=== PATIENT | female | born 1965 | race Caucasian/White ===

== ENCOUNTER → 2017-01-24 | Outpatient (CLI) | payer BC ==
[~2017-01-24] MED LIST: B-CO-25 PO; BIOTPOW17 PO; BUPR-267 PO; CHOL100010 PO; CYM/30 PO; FEXO1TAB49 PO; GABA-113 PO; MELO15TA4 PO; MONT1TAB3 PO; TOPI50TA16 PO; TYLOTC500 PO; ZOLP5TAB PO
--- NOTE | 2017-01-24 15:51 | MAMMOGRAPHY REPORT ---
BILATERAL DIGITAL DIAGNOSTIC MAMMOGRAM TOMOSYNTHESIS WITH CAD AND TARGETED BILATERAL ULTRASOUND: 01/24 CLINICAL HISTORY: 51-year-old woman presents with itchiness along the inferior right breast for 4-5 m onths. No skin erythema, nipple discharge or palpable mass. Family history of breast cancer = grand mother and 2 aunts. Also occasional tenderness in both breasts. TECHNIQUE: Bilateral breast tomosynthesis in addition to standard 2D mammography was performed. Curre nt study was also evaluated with a Computer Aided Detection (CAD) system. COMPARISON: Comparison is made to exams dated: 03/10/2016 mammogram, 02/21/2015 mammogram, 05/22/2013 mammogram - [facility], and 04/21/2007. BREAST COMPOSITION: There are scattered areas of fibroglandular density in both breasts. FINDINGS: There is a lobulated and circumscribed 6.5 x 4.4 mm mass in the medial right breast, only seen on the CC view. No associated architectural distortion or microcalcification. Further evaluati on with ultrasound was performed. Questionable 8 mm nodular area along the posterior nipple line on the left CC view (tomosynthesis slice 26/65), which could simply represent normal fibroglandular tiss ue. No other suspicious mass, architectural distortion or cluster of microcalcifications is seen in the left breast. Targeted ultrasound was performed along the inferior right breast in the area of itchiness pointed ou t by the patient, and also in the medial breast to assess for the 6.5 mm mammographic mass. In the r ight 4:00 axis, 1 cm from the nipple, there are 2 adjacent clusters of small cysts. The first cluste r measures 5.5 x 3.6 mm, and the second measures 3.1 x 2.9 mm. The patient reported pain while scann ing over the cysts, and the larger likely correlates with the mammographic finding. Although these f indings are probably benign, given that they do not meet the criteria for a simple cyst, a short inte rval follow-up diagnostic tomosynthesis mammogram and repeat targeted ultrasound is recommended to en sure stability in 6 months. Additional scanning throughout the inferior right breast demonstrates no other discrete solid or cystic mass. Note is made of mild benign duct ectasia. Scanning in the ret roareolar right breast demonstrates an inverted nipple but no evidence of a suspicious retroareolar m ass. Scanning in the left breast 12:00, retroareolar and 6:00 axes demonstrates minimal duct ectasia . No discrete solid or cystic mass. IMPRESSION: ACR-BI-RADS CATEGORY 3: PROBABLY BENIGN, TARGETED ULTRASOUND ACR-BI-RADS CATEGORY 3: PRO BABLY BENIGN 1. There is no new suspicious mammographic or sonographic abnormality in the in inferior right breas t to explain the itchiness described by the patient. If this symptom persists or worsens, surgical c onsultation may be useful. 2. A small, 6.5 mm lobulated mass in the medial right breast is thought to correlate with a cluster of microcysts in the 4:00 axis on ultrasound, which was also tender while performing ultrasound over this lesion. Given that it does not meet the criteria for a simple cyst, a short interval follow-up right diagnostic tomosynthesis mammogram and repeat targeted ultrasound is recommended to ensure stab ility in 6 months. 3. No mammographic or targeted sonographic evidence of malignancy in the left breast. These results and recommendations were discussed with the patient at the time of the exam. Approximately 10% of breast cancers are not detected with mammography. A negative mammographic report should not delay biopsy if a clinically suggestive mass is present. Libertad Calle M.D. ay/:01/24/2017 14:43:46 Periodontist: Luba Holden, [facility] letter sent: Follow Up Recommended 3 BI-RADS Code: ACR-BI-RADS Category 3: Probably Benign Ultrasound BI-RADS: ACR-BI-RADS Category 3: Pr obably Benign
== END | disposition home or self-care (01) ==
LOC: C.MAMM 13:20
PROVIDERS: ATTEND Family Medicine
DX: R92.8 Other abnormal and inconclusive findings on diagnostic imaging of breast (principal); N63 Unspecified lump in breast

== ENCOUNTER → 2017-05-03 | Outpatient (CLI) | payer BC ==
[~2017-05-03] MED LIST changes: +BIOTCAP2 PO; +CHOLCAP5 PO; +DULO60CA44 PO; +LEVO25TA5 PO; +MELO-84 PO; -MELO15TA4 PO; +SINCALIDE INJ 1.4 MCG in SODIUM CHLORIDE 0.9% 100ML 100 ML IV SCH; +SUMA100T16 PO; +TPM100 PO; +WLLXL/300 PO
--- NOTE | 2017-05-03 09:47 | DIAGNOSTIC IMAGING REPORT ---
ABDOMINAL ULTRASOUND, RIGHT UPPER QUADRANT HISTORY: Abdominal pain. COMPARISON: None. FINDINGS: Liver is sonographically normal. There is no biliary ductal dilatation. Common bile duct measures 4 mm in caliber. The gallbladder is normal. There are no gallstones. The pancreatic body is normal. The head and tail are partially obscured. There is no right hydronephrosis. IMPRESSION: No significant abnormality within the right upper quadrant. Electronically signed by: Marlon Perales M.D. 05/03/2017 9:46 AM Dictated Date/Time: 05/03/2017 9:45 AM
--- NOTE | 2017-05-03 11:44 | DIAGNOSTIC IMAGING REPORT ---
HEPATOBILIARY HIDA IMAGING CLINICAL HISTORY: 51 years-old Female presenting with ABD PAIN ,PT WENT TO ULTR FIRST. TECHNIQUE: Dynamic imaging of the gallbladder was initiated 65 minutes after administration of 5.5 mCi of technetium 99m Choletec. Imaging was obtained every 5 minutes over a span of 40 minutes. 1.4 mcg of sincalide was injected 5 minutes prior to the start of imaging. The gallbladder ejection fraction was calculated. COMPARISON: Ultrasound performed earlier the same day.. FINDINGS: The hepatobiliary scan shows normal filling of the gallbladder at the start of imaging. Expected activity within the bowel also noted. Gallbladder ejection fraction measured at 92% (normal greater than 50%). IMPRESSION: 1. Normal gallbladder ejection fraction. No evidence of chronic cholecystitis. Electronically signed by: Michael Gao M.D. 05/03/2017 11:43 AM Dictated Date/Time: 05/03/2017 11:42 AM
== END | disposition home or self-care (01) ==
LOC: C.ULTR 09:16
PROVIDERS: ATTEND Family Medicine
DX: R10.9 Unspecified abdominal pain (principal)

== ENCOUNTER 2017-06-29 19:08 | Emergency (ER) | payer BC ==
[~2017-06-29] VITALS: Ht 157.5 cm; Wt 53.9 kg
[~2017-06-29 19:08] MED LIST changes: -BIOTCAP2 PO; -CHOLCAP5 PO; -DULO60CA44 PO; -LEVO25TA5 PO; -SINCALIDE INJ 1.4 MCG in SODIUM CHLORIDE 0.9% 100ML 100 ML IV SCH; -SUMA100T16 PO; -TPM100 PO; -WLLXL/300 PO
[2017-06-29 19:36] VITALS: TEMP 36.9; Ht 157.5 cm; Wt 53.9 kg
--- NOTE | 2017-06-29 21:37 | EMERGENCY ROOM VISIT NOTE ---
History Report prepared by Braden: Hussein Quevedo Under the Supervision of: Dr. Amy Hill M.D. First contact with patient: 21:02 Chief Complaint: HEADACHE Stated Complaint: SEVERE HEADACHE History of Present Illness The patient is a 51 year old female who presents to the Emergency Room with complaints of a constantly worsening headache that she has been experiencing for the past four days. She describes her headache severity as "killer." The patient states that she has a history of headaches like this, which are usually located in the back of her head and along the right side. She has a history of Chiari malformation, and had a surgical procedure to repair this. The patient states that this surgery was a "flop" and left her with further complications. These complications include a "sunken incision" which is putting pressure on the back of her head and causing even further headaches. Her vision is now worsening and she has constant "popping" in her ears. She was in [place] today at 1500 for a Toradol Injection to help with the pain. The patient is not following with Neurology currently, but was told by [place] neurology that she has a "trapezius separation" that needs surgical repair. Source of History: patient Onset: 4 days Position: head Symptom Intensity: killer Timing: constant, worsening Note: Vision decline, ear popping. Review of Systems See HPI for pertinent positives & negatives. A total of 10 systems reviewed and were otherwise negative. Past Medical & Surgical Medical Problems: (1) C2 cervical fracture (2) Chiari malformation type I (3) History of Chiari malformation Surgical Problems: (1) History of hysterectomy Family History Cancer Diabetes mellitus Diabetes mellitus Heart disease Hypertension Social History Smoking Status: Never Smoker Drug Use: none Marital Status: Housing Status: lives with family Occupation Status: unemployed Current/Historical Medications Scheduled B-Complex W/ Folic Acid (Super B Complex Maxi), 1 TAB PO QAM Bupropion Hcl (Bupropion Hcl Er), 1 TAB PO QAM Cholecalciferol (Vitamin D), 5,000 UNITS PO QAM Duloxetine Hcl (Cymbalta), 30 MG PO QAM Fexofenadine Hcl (Bess Allergy), 1 TAB PO QAM Gabapentin (Neurontin), 300 MG PO TID Meloxicam (Mobic), 15 MG PO HS Montelukast Sodium (Singulair), 10 MG PO QAM Topiramate (Topamax), 50 MG PO BID Zolpidem Tartrate (Ambien), 5 MG PO HS [Biotin], 1 TAB PO QAM Scheduled PRN Acetaminophen (Tylenol), 1,000 MG PO Q6H PRN for Pain Allergies Coded Allergies: Iodinated Diagnostic Agents (Verified Allergy, Unknown, NAUSEA, 01/08/16) Physical Exam Vital Signs Date Time Temp Pulse Resp B/P (MAP) Pulse Ox O2 Delivery O2 Flow Rate FiO2 06/30/17 00:25 75 18 95/68 94 Room Air 06/29/17 22:31 76 20 101/61 96 Room Air 06/29/17 19:36 36.9 85 18 96/67 99 Room Air Physical Exam Vital signs reviewed. General: Well-appearing female, in no significant distress. HEENT: No scleral icterus, PERRLA, neck supple. Atraumatic. NECK: There are post surgical changes to the cervical spine. ROM of the C-spine is limited due to previous surgical intervention. No meningeal signs Cardiovascular: Regular rate and rhythm, no extra sounds. Pulmonary: Clear to auscultation bilaterally, normal work of breathing. Abdomen: Soft, nontender, nondistended, positive bowel sounds. Musculoskeletal: Atraumatic, no peripheral edema. Neurologic: Patient awake alert and oriented x 3, full strength in all 4 extremities. Cranial nerves 2 through 12 grossly intact. Skin: Warm, dry, no rash Medical Decision & Procedures Laboratory Results 06/29/17 22:15 Red Blood Count 3.77, Mean Corpuscular Volume 99.2, Mean Corpuscular Hemoglobin 33.7, Mean Corpuscular Hemoglobin Concent 34.0, Mean Platelet Volume 10.5, Neutrophils (%) (Auto) 44.2, Lymphocytes (%) (Auto) 43.2, Monocytes (%) (Auto) 8.2, Eosinophils (%) (Auto) 3.8, Basophils (%) (Auto) 0.3, Neutrophils # (Auto) 1.73, Lymphocytes # (Auto) 1.69, Monocytes # (Auto) 0.32, Eosinophils # (Auto) 0.15, Basophils # (Auto) 0.01 06/29/17 22:15 Test 06/29/17 22:15 White Blood Count 3.91 K/uL (4.8-10.8) Red Blood Count 3.77 M/uL (4.2-5.4) Hemoglobin 12.7 g/dL (12.0-16.0) Hematocrit 37.4 % (37-47) Mean Corpuscular Volume 99.2 fL (80-100) Mean Corpuscular Hemoglobin 33.7 pg (25-34) Mean Corpuscular Hemoglobin Concent 34.0 g/dl (32-36) Platelet Count 147 K/uL (130-400) Mean Platelet Volume 10.5 fL (7.4-10.4) Neutrophils (%) (Auto) 44.2 % Lymphocytes (%) (Auto) 43.2 % Monocytes (%) (Auto) 8.2 % Eosinophils (%) (Auto) 3.8 % Basophils (%) (Auto) 0.3 % Neutrophils # (Auto) 1.73 K/uL (1.4-6.5) Lymphocytes # (Auto) 1.69 K/uL (1.2-3.4) Monocytes # (Auto) 0.32 K/uL (0.11-0.59) Eosinophils # (Auto) 0.15 K/uL (0-0.5) Basophils # (Auto) 0.01 K/uL (0-0.2) RDW Standard Deviation 47.3 fL (36.4-46.3) RDW Coefficient of Variation 13.1 % (11.5-14.5) Immature Granulocyte % (Auto) 0.3 % Immature Granulocyte # (Auto) 0.01 K/uL (0.00-0.02) Anion Gap 5.0 mmol/L (3-11) Est Creatinine Clear Calc Drug Dose 65.7 ml/min Estimated GFR () 98.2 Estimated GFR (Non- 84.7 BUN/Creatinine Ratio 28.9 (10-20) Calcium Level 8.9 mg/dl (8.5-10.1) Total Bilirubin 0.2 mg/dl (0.2-1) Direct Bilirubin < 0.1 mg/dl (0-0.2) Aspartate Amino Transf (AST/SGOT) 10 U/L (15-37) Alanine Aminotransferase (ALT/SGPT) 21 U/L (12-78) Alkaline Phosphatase 76 U/L (45-117) Total Protein 6.9 gm/dl (6.4-8.2) Albumin 3.7 gm/dl (3.4-5.0) Laboratory results per my review. Medications Administered Medications (Trade) Dose Ordered Sig/Edson Route Start Time Stop Time Status Last Admin Dose Admin Prochlorperazine Edisylate (Compazine Inj) 10 mg NOW STAT IV 06/29/17 22:02 06/29/17 22:04 DC 06/29/17 22:26 10 MG Diphenhydramine HCl (Benadryl Inj) 25 mg NOW STAT IV 06/29/17 22:02 06/29/17 22:04 DC 06/29/17 22:27 25 MG Methylprednisolone Sodium Succinate (Solu-Medrol IV) 125 mg NOW STAT IV 06/29/17 22:02 06/29/17 22:04 DC 06/29/17 22:26 125 MG Sodium Chloride 1,000 ml @ 999 mls/hr Q1H1M STAT IV 06/29/17 22:02 06/29/17 23:02 DC 06/29/17 22:27 999 MLS/HR Hydromorphone HCl (Dilaudid Inj) 0.5 mg NOW STAT IV 06/30/17 00:04 06/30/17 00:06 DC 06/30/17 00:28 0.5 MG ED Course 2112: Past medical records reviewed. The patient was evaluated in room A12. A complete history and physical examination was performed. 2: Ordered Sodium Chloride 1000 mL @ 999 mL/hr IV, Solu-Medrol 125 mg Iv, Benadryl 25 mg IV, Compazine 10 mg IV. 0004: Ordered Dilaudid Inj 0.5 mg IV. 0045: Upon reevaluation, the patient appeared to have improvement of her symptoms. I discussed findings with her. She verbalized agreement of the treatment plan. The patient was discharged home. Medical Decision Differential diagnosis: Etiologies such as migraine headache, meningitis, sinusitis, CO exposure, ICH, SAH, infection, tumor, headache, sinus thrombosis, arterial dissection, as well as others were entertained. This pt was evaluated and appeared to be in no distress. IV access was obtained and lab work was drawn. Pt was placed on the boat carpenter. IVF were initiated. Pt states this DEL ANGEL is usual for her and denies new pattern. IV benadryl, compazine and solumedral were given. Pt was sleeping upon my reevaluation, but states her pain is no better. She was given 0.5 mg IV dilaudid. Pt's family requested a CT, however, this pt has had multiple imaging studies previously. I do not think additional radiation is in her best interest at this time as it is low yield with presentation. Pt was d/c to [facility], she should f/u with neurology and/or pain management. She will return to the ED for worsening of symptoms or any medical concerns. Medication Reconcilliation Current Medication List: was personally reviewed by me Blood Pressure Screening Patient's blood pressure: Normal blood pressure Impression Primary Impression: Headache Additional Impression: History of Chiari malformation Scribe Attestation The scribe's documentation has been prepared under my direction and personally reviewed by me in its entirety. I confirm that the note above accurately reflects all work, treatment, procedures, and medical decision making performed by me. Departure Information Dispostion Home / Self-Care Referrals Lynne Carvalho D.O. (PCP) Forms HOME CARE DOCUMENTATION FORM, IMPORTANT VISIT INFORMATION Patient Instructions My [facility] Additional Instructions Diagnosis: Headache Please drink plenty of clear fluids. Follow-up with your physician tomorrow by telephone if headache persists. Return to the emergency department for worsening of symptoms or any medical concerns. Problem Qualifiers
[2017-06-29] MEDS: METHYLPREDNISOLONE 125 MG VIAL IV STA (22:26)
[2017-06-29] MEDS: PROCHLORPERAZINE 5 MG/ML 2 ML VIAL IV STA (22:26)
[2017-06-29] MEDS: SODIUM CHLORIDE 0.9% 1000ML 1,000 ML IV STA (22:27)
[2017-06-29] MEDS: DiphenhydrAMINE HCL 50 MG/ML VIAL IV STA (22:27)
[2017-06-29 22:33] LABS: BASO % 0.3 %; BASO ABS # 0.01 K/uL (0-0.2); EOS % 3.8 %; EOS ABS # 0.15 K/uL (0-0.5); HEMATOCRIT 37.4 % (37-47); HEMOGLOBIN 12.7 g/dL (12.0-16.0); IG# 0.01 K/uL (0.00-0.02); LYMPH % 43.2 %; LYMPH ABS # 1.69 K/uL (1.2-3.4); MEAN CELL VOLUME 99.2 fL (80-100); MEAN CORPUSCULAR HEMOGLOBIN 33.7 pg (25-34); MEAN PLATELET VOLUME 10.5 fL (7.4-10.4); MONO % 8.2 %; MONO ABS # 0.32 K/uL (0.11-0.59); NEUT % 44.2 %; NEUT ABS # 1.73 K/uL (1.4-6.5); PLATELET COUNT 147 K/uL (130-400); RED CELL DISTRIBUTION WIDTH CV 13.1 % (11.5-14.5); RED CELL DISTRIBUTION WIDTH SD 47.3 fL (36.4-46.3); WHITE BLOOD COUNT 3.91 K/uL (4.8-10.8)
[2017-06-29 22:52] LABS: ALBUMIN 3.7 gm/dl (3.4-5.0); ALT/SGPT 21 U/L (12-78); BLOOD UREA NITROGEN 23 mg/dl (7-18); CALCIUM 8.9 mg/dl (8.5-10.1); CARBON DIOXIDE 24 mmol/L (21-32); CREATININE 0.81 mg/dl (0.60-1.20); GLUCOSE 85 mg/dl (70-99); POTASSIUM 3.7 mmol/L (3.5-5.1); SODIUM 141 mmol/L (136-145)
[2017-06-29 22:55] LABS: ALKALINE PHOSPHATASE 76 U/L (45-117); AST/SGOT 10 U/L (15-37); TOTAL PROTEIN 6.9 gm/dl (6.4-8.2)
[2017-06-30 00:25] VITALS: BP 95/68; PULSE 75; O2SAT 94
[2017-06-30] MEDS: HYDROmorphone INJ 0.5 MG/0.5 ML SYR IV STA (00:28)
== END 2017-06-30 00:42 | disposition home or self-care (01) ==
LOC: C.EDB 19:10 → C.EDA 06-30 00:42
DX: R51 Headache (principal); G93.5 Compression of brain; Z83.3 Family history of diabetes mellitus; Z82.49 Family history of ischemic heart disease and other diseases of the circulatory system

== ENCOUNTER → 2017-07-06 | Outpatient (CLI) | payer BC ==
--- NOTE | 2017-07-06 13:53 | DIAGNOSTIC IMAGING REPORT ---
CT HEAD WITHOUT CONTRAST (CT) CLINICAL HISTORY: HEADACHES,LT SIDED WEAKNESS COMPARISON STUDY: 07/01/2015 TECHNIQUE: Axial CT of the brain is performed from the vertex to the skull base. IV contrast was not administered for this examination. A dose lowering technique was utilized adhering to the principles of ALARA. CT DOSE: 638.56 mGycm FINDINGS: No intra or extra-axial mass lesions are visualized. There is no CT evidence of acute cortical infarction. There is no evidence of midline shift. There is no acute hemorrhage. No calvarial fractures are visualized. There are low-lying cerebellar tonsils. There are postsurgical changes of a suboccipital craniotomy. There is no evidence of pathologic ventricular dilatation. There is no evidence of acute sinusitis IMPRESSION: No acute intracranial findings Electronically signed by: Homer Gamino M.D. 07/06/2017 1:51 PM Dictated Date/Time: 07/06/2017 1:50 PM
== END | disposition home or self-care (01) ==
LOC: C.CTS 13:37
PROVIDERS: ATTEND Family Medicine
DX: R51 Headache (principal)

== ENCOUNTER → 2017-07-20 | Outpatient (CLI) | payer BC ==
--- NOTE | 2017-07-20 12:44 | DIAGNOSTIC IMAGING REPORT ---
MRI OF THE BRAIN WITHOUT CONTRAST CLINICAL HISTORY: HEADACHE [NECK. HISTORY OF CHIARI SURGERY MAY 2015 COMPARISON STUDY: 01/06/2016 FINDINGS: Sagittal T1, axial diffusion, proton density and T2 weighted axial, coronal FLAIR, and axial T1-weighted images were acquired. No intra or extra-axial mass lesions are visualized Axial diffusion-weighted images reveal no evidence of acute or subacute infarction. There is no evidence of ventricular dilatation. Proton density T2-weighted and FLAIR images reveal scattered foci of increased T2 signal within the white matter, likely on a small vessel basis. These remain essentially unchanged from the prior study There are no abnormal flow voids. There are postsurgical changes of a suboccipital craniotomy. IMPRESSION: 1. No acute intracranial findings 2. Postsurgical changes of a suboccipital craniotomy. 3. No evidence of acute or subacute infarction. No evidence of intracranial mass. No evidence of hydrocephalus. Electronically signed by: Homer Gamino M.D. 07/20/2017 12:43 PM Dictated Date/Time: 07/20/2017 12:32 PM
== END | disposition home or self-care (01) ==
LOC: C.MRIBC 11:37
PROVIDERS: ATTEND Family Medicine
DX: R51 Headache (principal)

== ENCOUNTER → 2017-07-25 | Outpatient (CLI) | payer BC ==
--- NOTE | 2017-07-25 12:44 | MAMMOGRAPHY REPORT ---
UNILATERAL RIGHT DIGITAL DIAGNOSTIC MAMMOGRAM TOMOSYNTHESIS WITH CAD AND TARGETED RIGHT ULTRASOUND: CLINICAL HISTORY: 51-year-old woman presents for follow-up in the right breast for a 6.5 mm lobulated mass in the medial right breast mammographically, thought to correlate with a cluster of microcysts in the 4:00 axis on ultrasound. TECHNIQUE: Right breast tomosynthesis in addition to standard 2D mammography was performed. Current study was also evaluated with a Computer Aided Detection (CAD) system. COMPARISON: Comparison is made to exams dated: 01/24/2017 mammogram, 01/24/2017 ultrasound, 03/10/2016 mammogram, 02/21/2015 mammogram, 05/22/2013 mammogram - [facility], and 04/21/2007. BREAST COMPOSITION: There are scattered areas of fibroglandular density in the right breast. FINDINGS: The previously observed oval to lobulated, 6.5 x 4.4 mm mass in the medial, middle one thir d of the right breast on the CC view is less prominent on today's exam and possibly identified on serafin osynthesis slice 17/61, measuring 3.9 x 3.2 mm. The interval decrease in size of this mammographic m ass confirms benignity. No new suspicious irregular or spiculated mass identified. No developing as ymmetry, area of architectural distortion or suspicious calcifications. Targeted ultrasound was performed in the 4:00 left breast. The probable cluster of microcysts identi fied on the prior ultrasound are no longer seen, confirming benignity. IMPRESSION: ACR BI-RADS CATEGORY 2: BENIGN, TARGETED ULTRASOUND ACR BI-RADS CATEGORY 2: BENIGN Decreased mammographic prominence of a benign-appearing lobulated and circumscribed mass in the media l right breast, and resolution of previously observed probable microcystic clusters in the 4:00 right breast on ultrasound. The decrease/resolution of these findings confirms benignity, and no further close follow-up is needed at this time. Recommend return to annual screening mammography schedule, mague ubrady in December 2017. These results and recommendations were discussed with the patient at the time of the exam. She tenta tively scheduled her next screening exam prior to leaving the department. Approximately 10% of breast cancers are not detected with mammography. A negative mammographic report should not delay biopsy if a clinically suggestive mass is present. Libertad Calle M.D. ay/:07/25/2017 12:26:02 Sprinkling Truck Driver: Luba DÍAZ)(M), [facility] letter sent: Normal 1/2 BI-RADS Code: ACR BI-RADS Category 2: Benign Ultrasound BI-RADS: ACR BI-RADS Category 2: Benign
== END | disposition home or self-care (01) ==
LOC: C.MAMM 09:33
PROVIDERS: ATTEND Family Medicine
DX: Z09 Encounter for follow-up examination after completed treatment for conditions other than malignant neoplasm (principal); N63.10 Unspecified lump in the right breast, unspecified quadrant

== ENCOUNTER → 2017-08-16 | Outpatient (CLI) | payer BC ==
[~2017-08-16] MED LIST changes: +BIOTCAP2 PO; +CHOLCAP5 PO; +DULO60CA44 PO; +LEVO25TA5 PO; +SUMA100T16 PO; +TPM100 PO; +WLLXL/300 PO
--- NOTE | 2017-08-16 11:22 | DIAGNOSTIC IMAGING REPORT ---
LEFT FIRST TOE ULTRASOUND CLINICAL HISTORY: LOCALIZED SWELLING,MASS AND LUMP,UNSPECIFIED LOWER LIMB COMPARISON STUDY: None. FINDINGS: Real-time sonographic imaging of the left first toe was performed with assistance representative images submitted. There is a slightly complex cystic lesion within the soft tissues of the left toe. This contains a few septations and internal echoes. This measures approximately 10 x 7 x 4 mm. IMPRESSION: There is an indeterminate slightly complex 10 x 7 x 4 mm cystic lesion within the soft tissues of the left first toe. Electronically signed by: Earle Knight M.D. 08/16/2017 11:20 AM Dictated Date/Time: 08/16/2017 11:19 AM
== END | disposition home or self-care (01) ==
LOC: C.ULTR 10:40
PROVIDERS: ATTEND Family Medicine
DX: R22.40 Localized swelling, mass and lump, unspecified lower limb (principal)

== ENCOUNTER → 2017-09-02 | Day surgery (SDC) | payer BC ==
[2017-08-23 12:25] VITALS: Ht 157.5 cm; Wt 70.5 kg
[~2017-09-02] VITALS: Ht 157.5 cm; Wt 70.5 kg
[~2017-09-02] MED LIST changes: +ACETAMINOPHEN/CODEINE 300/30MG TAB PO PRN; +ATROPINE SULFATE 0.1 MG/ML 5ML SYR IV PRN; -BIOTPOW17 PO; +BUPIVACAINE 0.5 % 5 MG/1 ML PF 10ML VIAL ONE; -BUPR-267 PO; +CEFAZOLIN 1000MG IV PUSH 7.5 ML IV SCH; -CHOL100010 PO; -CYM/30 PO; +EpHEDrine SULFATE INJ 50 MG/ML AMP IV PRN; +FENTANYL CITRATE INJ 50 MCG/1 ML 2 ML VIAL IV PRN; +FENTANYL CITRATE INJ 50 MCG/1 ML 2 ML VIAL ONE; +FLUMAZENIL 0.1 MG/1 ML 10 ML VIAL IV PRN; -GABA-113 PO; +HYDROCODONE/ACETAMIN 5/325MG TAB PO PRN; +HYDROmorphone INJ 2 MG/ML SYR/VIAL IV PRN; +LABETALOL HCL IV 5 MG/ML 20ML IV PRN; +LACTATED RINGER'S 1000ML 1,000 ML IV SCH; +LIDOCAINE HCL 1% 20 ML VIAL ONE; +LIDOCAINE HCL 2% 2 ML VIAL (20MG/ML) ONE; +MEPERIDINE HCL 25 MG/ML CARP IV PRN; +MIDAZOLAM HCL 1 MG/ML 2ML VIAL ONE; +NALOXONE HCL 0.4 MG/1 ML VIAL/CARP IV PRN; +ONDANSETRON INJ 2 MG/ML 2 ML VIAL IV PRN; +PHENYLEPHRINE 100MCG/ML 5ML SYR IV PRN; +PROPOFOL IV EMULSION 10 MG/ML 20 ML VIAL ONE; +SODIUM CHLORIDE 0.9% 1000ML 1,000 ML IV SCH; -TOPI50TA16 PO
--- NOTE | 2017-09-02 07:23 | History & Physical Bridge - SC ---
H&P Re-Evaluation Bridge Note: I have examined the patient, reviewed the History & Physical and in the interval since the performance of the History & Physical I have noted the following changes of clinical significance: No changes noted
[2017-09-02 08:25] VITALS: TEMP 36.1
--- NOTE | 2017-09-02 08:27 | Discharge Instructions-SurgCtr ---
Discharge Instructions Date of Service September 02, 2017. Visit Reason for Visit: Left Foot Painful Mass Discharge Discharge Diagnosis / Problem: left foot mass Discharge Goals Goal(s): Decrease discomfort, Improve function, Diagnostic testing Medications Stopped Medications Name(s): restart all medications Activity Recommendations Activity Limitations: as noted below (please limit weightbearing) Lifting Limitations: no more than 5 pounds Exercise/Sports Limitations: none May Resume Sexual Activity: after two weeks Shower/Bathe: keep incision dry Driving or Machine Use: after follow up Weightbearing Status: Left weightbearing (as tolerated) Anesthesia . Post Anesthesia Instructions: If you have had General Anesthesia or IV Sedation: * Do not drive today. * Resume driving when surgeon permits. * Do not make important decisions or sign legal documents today. * Call surgeon for: 1. Temperature elevations greater than 101 degrees F. 2. Uncontrollable pain. 3. Excessive bleeding. 4. Persistent nausea and vomiting. 5. Medication intolerance (nausea, vomiting or rash). * For nausea and vomiting use only clear liquids such as: tea, soda, bouillon until nausea subsides, then gradually increase diet as tolerated. * If you have any concerns or questions, call your surgeon's office. If physician is unavailable and it is an emergency, call 911 or go to the nearest emergency room. . Diet Recommendations Home Diet: no limitations Procedures Procedures Performed: Left Foot Mass Excision And Biopsy Pending Studies Studies pending at discharge: no Medical Emergencies . Who to Call and When: Medical Emergencies: If at any time you feel your situation is an emergency, please call 911 immediately. . Non-Emergent Contact Non-Emergency issues call your: Primary Care Provider (please call Dr. Cirilo Mullen at [phone]) Call Non-Emergent contact if: temperature is above 101.5 . . "Provider Documentation" section prepared by Zabrina Serna. . [place] Drug Monitoring Program Search Results: patient reviewed within database Drug Monitoring Findings: ok for prescription narcotics, PDMP site checked, patient could not tolerate so Toradol sent
--- NOTE | 2017-09-02 08:29 | [facility] Post Operative Brief Note ---
Immediate Operative Summary Operative Date September 02, 2017. Pre-Operative Diagnosis Left Foot Mass Post-Operative Diagnosis Same Procedure(s) Performed Left Foot Mass Excision And Biopsy Surgeon Dr. Rivera Aerospace Engineer Surgeon(s) None Estimated Blood Loss 0 mL Findings Consistent with Post-Op Diagnosis ganglion cyst left foot Fluids (cc crystalloids) none Specimens A. Left Foot Mass Drains None Anesthesia Type MAC Complication(s) none Disposition Accompanied Pt To Recovery: yes Disposition: Recovery Room / PACU
--- NOTE | 2017-09-02 08:45 | Anesthesiology Progress Note ---
Anesthesia Post Op Note Date & Time September 02, 2017 at 08:45 Vital Signs Pain Intensity: 0 Vital Signs Past 12 Hours Date Time Temp Pulse Resp B/P (MAP) Pulse Ox O2 Delivery O2 Flow Rate FiO2 09/02/17 08:25 36.1 68 16 101/64 (76) 95 Room Air 09/02/17 06:56 37.0 88 16 100/63 (75) 98 Room Air Notes Mental Status: alert / awake / arousable, participated in evaluation Pt Amnestic to Procedure: Yes Nausea / Vomiting: adequately controlled Pain: adequately controlled Airway Patency, RR, SpO2: stable & adequate BP & HR: stable & adequate Hydration State: stable & adequate Anesthetic Complications: no major complications apparent
[2017-09-02 08:47] VITALS: BP 105/65; PULSE 72; O2SAT 99
--- NOTE | 2017-09-02 13:38 | OPERATIVE REPORT ---
DATE OF OPERATION: 09/02/2017 PREOPERATIVE DIAGNOSIS: Left foot painful mass. POSTOPERATIVE DIAGNOSIS: Same. PROCEDURE: Left foot mass excision and biopsy. HEMOSTASIS: Pneumatic ankle tourniquet at 250 mmHg. BLOOD LOSS: Zero. ANESTHESIA: Local IV sedation. PROCEDURE FOLLOWS: The patient was brought in the operating room and placed in the supine position. The left lower extremity was prepped and draped in the usual sterile manner. A 1:1 mix of 1% lidocaine plain and 0.5% Marcaine was utilized to anesthetize the left foot in the area of the mass or ganglion cyst that was present. At this time, anesthesia was induced, a timeout was taken, and the procedure began after inflation of the tourniquet. A curvilinear incision was made over the first interspace of the left foot which is the site of the left foot mass that was present. Dissection was carried through the skin and subcutaneous tissues. At this point, what is likely a ganglion cyst was identified directly under the subcutaneous tissues. The ganglion cyst was dissected free of all the soft tissue attachments. It was sent to pathology for permanent specimen. The remaining tissues were clean. Intraoperative photos were obtained. There were no abnormalities to the interspace. No abnormalities to the surrounding tissue. No abnormalities to any adjacent structures including the first metatarsophalangeal joint. The cyst was well contained within the area just under the subcutaneous tissues of the first interspace. The area was then flushed with copious amounts of normal saline. The subcutaneous tissues were then closed with 2-0 Vicryl, the skin was then closed with 3-0 Prolene. Compressive and corrective dressings were applied. The tourniquet was deflated. The patient had good hemodynamic response noted to the left lower extremity and to the hallux in all digits of the left foot. The patient was taken to the recovery room with all vital signs stable and intact. She will follow up with me in my office in 1 week. She was made aware of all risks and benefits of the procedure and signed consent. [facility] site was checked prior to the patient having her pain medication sent; however, she was not able to tolerate the narcotics with her other medications and therefore opted to have Toradol for postop pain management. Again, she signed consent and will follow up with me in 1 week. I attest to the content of the Intraoperative Record and any orders documented therein. Any exceptions are noted below. BORIS
== END | disposition home or self-care (01) ==
LOC: X.SURG 06:40
PROVIDERS: ATTEND Podiatrist
DX: M67.472 Ganglion, left ankle and foot (principal); M19.90 Unspecified osteoarthritis, unspecified site; Z98.890 Other specified postprocedural states; Z88.8 Allergy status to other drugs, medicaments and biological substances; F17.200 Nicotine dependence, unspecified, uncomplicated; Z82.49 Family history of ischemic heart disease and other diseases of the circulatory system; Z83.3 Family history of diabetes mellitus; Z80.9 Family history of malignant neoplasm, unspecified

== ENCOUNTER 2020-08-05 09:25 | Inpatient (IN) ==
--- NOTE | 2020-07-21 15:22 | PAT Medication Instructions ---
Medication Instructions Date of Service July 21, 2020 Home Medications celecoxib 200 mg PO BID duloxetine 60 mg PO HS pantoprazole 1 tab PO QPM cetirizine 10 mg PO HS cholecalciferol (vitamin D3) [Vitamin D3] 5,000 unit PO QAM cyanocobalamin (vitamin B-12) 1,000 mcg PO QAM duloxetine 90 mg PO QAM acetazolamide [Diamox] 500 mg PO BID bupropion HCl 150 mg PO QAM levothyroxine 75 mcg PO QAM linaclotide [Linzess] 72 mcg PO QAM sumatriptan succinate 6 mg SUBCUT UD PRN zolpidem 10 mg PO HS PRN ASK your surgeon for instructions celecoxib 200 mg PO BID ASK your prescriber and surgeon acetazolamide [Diamox] 500 mg PO BID DO NOT take the morning of surgery cholecalciferol (vitamin D3) [Vitamin D3] 5,000 unit PO QAM cyanocobalamin (vitamin B-12) 1,000 mcg PO QAM linaclotide [Linzess] 72 mcg PO QAM Take morning of surgery With a small sip of water, OTHERWISE NOTHING TO EAT OR DRINK AFTER MIDNIGHT: duloxetine 90 mg PO QAM bupropion HCl 150 mg PO QAM levothyroxine 75 mcg PO QAM sumatriptan succinate 6 mg SUBCUT UD PRN (if needed) Take evening before surgery duloxetine 60 mg PO HS pantoprazole 1 tab PO QPM cetirizine 10 mg PO HS sumatriptan succinate 6 mg SUBCUT UD PRN (if needed) zolpidem 10 mg PO HS PRN (if needed) Other Notes If you have any questions please call us at [phone] or [phone] or [phone] or [phone]
--- NOTE | 2020-07-22 12:28 | Anesthesiology Consultation ---
Date of Service July 22, 2020 Assessment & Plan (1) Encounter for pre-operative examination: COVID Status: As of 07/22 assessment, patient denies travel to endemic area, known exposure/sick contacts, or symptoms of COVID19. Patient instructed that they and their household members must follow strict social distancing guidelines, wear a mask in public and avoid travel/events/gatherings for 14 days prior to surgery. Preoperative COVID19 testing to be completed prior to surgery per surgeon's arrangements (08/29). Patient made aware to self-isolate as much as possible between COVID testing and surgery. Patient is fully vaccinated. Spoke to Dr. Romano re: patient's Diamox. Recommend it be continued perioperatively. Patient was informed of this. Patient is S/P Chiari malformation decompression -- follows with neurosurgery and the headache clinic with [facility]. Will obtain most recent office notes. Chart Review Chart Review: Acceptable Risk for Surgery and Patient seen in Pre Admission Testing Teaching & Discussion Instructed NPO after midnight before surgery, except medications with 15 cc of water. Medication instructions provided according to the PAT guidelines. History Surgery Operation Date: 08/05/20 11:05 Proposed Procedures p L4-L5 Decompression Fusion, L5-S1 Hardware Removal Spinal Cord Monitoring - Kurt Matias, Height/Weight Height: 5 ft 2 in Weight: 80.9 kg Allergies Allergy/AdvReac Type Severity Reaction Status Date / Time Iodinated Contrast Media AdvReac Mild NAUSEA Verified 07/09/20 12:37 Medications Home Medications Medication Instructions Recorded Confirmed Last Taken celecoxib 200 mg PO BID 07/12/18 07/09/20 02/11/20 21:00 duloxetine 60 mg PO HS 07/12/18 07/09/20 02/11/20 21:00 pantoprazole 1 tab PO QPM 07/12/18 07/09/20 01/29/20 08:00 cetirizine 10 mg PO HS 07/19/18 07/09/20 02/11/20 08:00 cholecalciferol (vitamin D3) 5,000 unit PO QAM 07/19/18 07/09/20 02/11/20 08:00 [Vitamin D3] cyanocobalamin (vitamin B-12) 1,000 mcg PO QAM 07/19/18 07/09/20 02/11/20 08:00 duloxetine 90 mg PO QAM 12/28/19 07/09/20 02/11/20 08:00 acetazolamide [Diamox] 500 mg PO BID 07/09/20 07/09/20 Unknown bupropion HCl 150 mg PO QAM 07/09/20 07/09/20 Unknown levothyroxine 75 mcg PO QAM 07/09/20 07/09/20 Unknown linaclotide [Linzess] 72 mcg PO QAM 07/09/20 07/09/20 Unknown sumatriptan succinate 6 mg SUBCUT UD PRN 07/09/20 07/09/20 Unknown zolpidem 10 mg PO HS PRN 07/09/20 07/09/20 Unknown Past Medical History Medical History Cervical spine fracture HX OF 2001 ([facility]) Degenerative disc disease Depression Fibromyalgia GERD (gastroesophageal reflux disease) History of Chiari malformation s/p surgical intervention. Follows with Dr. Ballard [facility]. History of gastric ulcer Hypothyroidism Irritable bowel disease Migraine Osteoarthritis Ovarian cyst HX OF Sensorineural hearing loss (SNHL) of both ears Spinal stenosis Exercise / Class Metabolic Activity II 4-5 Yardwork/Stairs/Walk up hill (Denies Cp or SOB with 1 FOS with 1 FOS, currently limited by pain.) Past Family History Family History Mother Family history of diabetes mellitus Hypertension Heart disease Asthma Father Hypertension Heart disease Grandmother Cancer Aunt Cancer Son Allergies Asthma Denies family history of Hearing loss No family history of adverse response to anesthesia No family history of bleeding disorder Stroke Past Surgical History Surgical History Fusion of spine CERVICAL 5-6-7 LUMBAR H/O craniotomy 2015/[facility] (TO CORRECT CHIARI MALFORMATION) and then repeat in 2019/[facility] H/O hand surgery x2 (LEFT) History of bilateral tubal ligation History of colonoscopy History of endoscopic sinus surgery History of esophagogastroduodenoscopy (EGD) History of hysterectomy History of tooth extraction S/P foot surgery, left HX OF x2 Past Anesthesia History No Hx of Anesthesia Complications and No Family Hx of Anesthesia Complications History of PONV No Hx of PONV and No Hx of Motion Sickness Social History Smoking Status: Current every day smoker tobacco type: cigarettes Smoking cigarettes per day: 5-10 CIG DAILY Do You Dip or Chew Tobacco: No Hx Alcohol Use: No Hx Substance Use: No substance use type: does not use Review of Systems Pt denies any recent chest pain, shortness of breath, palpitations, cough, fever, URI, or uncontrolled acid reflux (mostly controlled with PPI and only needs Gavascon with certain foods). Physical Exam Vital Signs BP: 93/64 (pt reports this is baseline, she is asymptomatic) P: 82bpm SPO2: 98% RA T: 98.0 F R: 16 ENMT Mouth: + dental restorations (one molar implant); no chipped teeth and no loose teeth Thyromental Distance: > or= 3.5 Finger Breadths (3.5) Mallampati Class: II Neck + limited neck extension (very slightly) Midline anterior scar. Respiratory normal respiratory effort, lungs clear to auscultation Cardiovascular RRR, no murmur, no edema Vessels: no carotid bruit Testing Laboratory Results 07/22/20 12:33 07/22/20 12:33 PT 9.9 Seconds (9.0-12.0) 07/22/20 12:33 INR 1.0 (0.9-1.1) 07/22/20 12:33 APTT 27.1 Seconds (21.0-31.0) 07/22/20 12:33 Urine Color Yellow 07/22/20 12:33 Urine Appearance Clear (Clear) 07/22/20 12:33 Urine pH 6.0 (4.5-7.5) 07/22/20 12:33 Ur Specific [place] 1.012 (1.000-1.030) 07/22/20 12:33 Urine Protein Negative (Negative) 07/22/20 12:33 Urine Glucose (UA) Negative (Negative) 07/22/20 12:33 Urine Ketones Negative (Negative) 07/22/20 12:33 Urine Nitrite Negative (Negative) 07/22/20 12:33 Ur Leukocyte Esterase Negative (Negative) 07/22/20 12:33 Blood Type O Positive 07/22/20 12:33 Antibody Screen NEGATIVE 07/22/20 12:33 Electrocardiogram Date: 07/22/20 Findings: + NSR @ (78bpm) and + no change from Chest X-Ray Date: 07/22/20 Findings: + NAD Cervical Spine Date: 12/06/18 IMPRESSION: 1. Status post C5-C7 ACDF. The hardware appears intact. 2. Mild facet degenerative changes, unchanged. 3. Straightening of the cervical spine is also unchanged.
--- NOTE | 2020-07-22 13:17 | XRay Report ---
XR chest Pre-admission PA/Lat HISTORY: 54 years-old Female pat preoperative exam. No acute chest complaints COMPARISON: Chest radiographs 12/29/2018 TECHNIQUE: PA and lateral views of the chest FINDINGS: Cardiomediastinal and hilar silhouettes are within normal limits. There is no pneumothorax, pleural e ffusion, airspace consolidation or overt pulmonary edema. The bones of the chest appear grossly intac t. Lower cervical spinal fusion hardware. IMPRESSION: No acute process. ACT 112: Negative or not required by law. The above report was generated using voice recognition software. It may contain grammatical, syntax o r spelling errors. Electronically signed by: Willy Tobar M.D. 07/22/2020 1:16 PM
[2020-07-22 14:19] LABS: Basophils # (auto) 0.01 K/uL (0-0.2); Basophils % (auto) 0.3 %; Eosinophils # (auto) 0.11 K/uL (0-0.5); Hematocrit (blood only) 40.5 % (37-47); Hemoglobin 13.4 g/dL (12.0-16.0); Immature Granulocytes # (auto) 0.01 K/uL (0.00-0.02); Immature Granulocytes % (auto) 0.3 %; Lymphocytes # (auto) 1.06 K/uL (1.2-3.4); Mean Corpuscular Hemoglobin 32.7 pg (25-34); Mean Corpuscular Hgb Conc 33.1 g/dL (32-36); Mean Corpuscular Volume 98.8 fL (80-100); Mean Platelet Volume 11.3 fL (7.4-10.4); Monocytes % (auto) 8.2 %; Neutrophils # (auto) 2.17 K/uL (1.4-6.5); Neutrophils % (auto) 59.2 %; Platelet Count 140 K/uL (130-400); RDW Coefficient of Variation 13.2 % (11.5-14.5); RDW Standard Deviation 47.4 fL (36.4-46.3); White Blood Count 3.66 K/uL (4.8-10.8)
[2020-07-22 14:25] LABS: BUN Creatinine Ratio 16.7 (10-20); Calcium 9.3 mg/dl (8.5-10.1); Est GFR (African American) 85.8; Potassium 4.4 mmol/L (3.5-5.1)
[2020-07-22 14:34] LABS: Partial Thromboplastin Time 27.1 Seconds (21.0-31.0); Prothrombin Time 9.9 Seconds (9.0-12.0)
--- NOTE | 2020-07-22 14:40 | Electrocardiogram Report ---
Test Reason : Blood Pressure : / mmHG Vent. Rate : 078 BPM Atrial Rate : 078 BPM P-R Int : 144 ms QRS Dur : 074 ms QT Int : 356 ms P-R-T Axes : 060 048 041 degrees QTc Int : 405 ms Normal sinus rhythm Normal ECG When compared with ECG of 12-JUL-2018 08:07, No significant change was found Confirmed by Leonidas Magaña ([id number]) on 07/22/2020 2:40:18 PM Referred By: Kurt Matias Confirmed By:Gee Magaña
[2020-07-22 15:01] LABS: Appearance Urine Clear (Clear); Bilirubin Urine Negative (Negative); Blood Urine Negative (Negative); Color Urine Yellow; Glucose Urine UA Negative (Negative); Ketones Urine Negative (Negative); Leukocyte Esterase Urine Negative (Negative); Nitrite Urine Negative (Negative); Protein Urine Negative (Negative); Specific Gravity Urine 1.012 (1.000-1.030); Urobilinogen Urine Negative (Negative)
[~2020-08-05 09:25] MED LIST changes: +ACETAMINOPHEN 500 MG TAB PO SCH; -ACETAMINOPHEN/CODEINE 300/30MG TAB PO PRN; -ATROPINE SULFATE 0.1 MG/ML 5ML SYR IV PRN; -B-CO-25 PO; -BIOTCAP2 PO; -BUPIVACAINE 0.5 % 5 MG/1 ML PF 10ML VIAL ONE; -CEFAZOLIN 1000MG IV PUSH 7.5 ML IV SCH; -CHOLCAP5 PO; +CeleBREX 200 MG CAP PO SCH; -DULO60CA44 PO; -EpHEDrine SULFATE INJ 50 MG/ML AMP IV PRN; -FENTANYL CITRATE INJ 50 MCG/1 ML 2 ML VIAL IV PRN; -FENTANYL CITRATE INJ 50 MCG/1 ML 2 ML VIAL ONE; -FEXO1TAB49 PO; -FLUMAZENIL 0.1 MG/1 ML 10 ML VIAL IV PRN; +GABAPENTIN 900 MG DOSE PO SCH; -HYDROCODONE/ACETAMIN 5/325MG TAB PO PRN; -HYDROmorphone INJ 2 MG/ML SYR/VIAL IV PRN; -LABETALOL HCL IV 5 MG/ML 20ML IV PRN; -LACTATED RINGER'S 1000ML 1,000 ML IV SCH; -LEVO25TA5 PO; -LIDOCAINE HCL 1% 20 ML VIAL ONE; -LIDOCAINE HCL 2% 2 ML VIAL (20MG/ML) ONE; +LR 15ML/HR IV SCH; -MELO-84 PO; -MEPERIDINE HCL 25 MG/ML CARP IV PRN; -MIDAZOLAM HCL 1 MG/ML 2ML VIAL ONE; -MONT1TAB3 PO; -NALOXONE HCL 0.4 MG/1 ML VIAL/CARP IV PRN; -ONDANSETRON INJ 2 MG/ML 2 ML VIAL IV PRN; -PHENYLEPHRINE 100MCG/ML 5ML SYR IV PRN; -PROPOFOL IV EMULSION 10 MG/ML 20 ML VIAL ONE; -SODIUM CHLORIDE 0.9% 1000ML 1,000 ML IV SCH; -SUMA100T16 PO; -TPM100 PO; -TYLOTC500 PO; -WLLXL/300 PO; -ZOLP5TAB PO; +ceFAZolin 2000MG 2,000 MG/15 ML SYR IV SCH
[2020-08-05] MEDS ORDERED: DEXAMETHASONE SOD INJ 4 MG/ML VIAL ONE (09:42)
[2020-08-05] MEDS ORDERED: ONDANSETRON INJ 2 MG/ML 2 ML VIAL ONE (09:42)
[2020-08-05] MEDS ORDERED: MIDAZOLAM HCL 1 MG/ML 2ML VIAL ONE (09:42)
[2020-08-05] MEDS ORDERED: ROCURONIUM BROMIDE 10 MG/ML 5 ML VIAL IV ONE (09:42)
[2020-08-05] MEDS ORDERED: HYDROmorphone INJ 2 MG/ML SYR/VIAL ONE (09:42)
[2020-08-05] MEDS ORDERED: PROPOFOL IV EMULSION 10 MG/ML 20 ML VIAL IV ONE (09:42)
[2020-08-05] MEDS ORDERED: ePHEDrine sulfate 50 MG/ML AMP IV PRN (10:22)
[2020-08-05] MEDS ORDERED: ATROPINE SULFATE 0.1 MG/ML 10ML SYR IV PRN (10:22)
[2020-08-05] MEDS ORDERED: PROMETHAZINE HCL 6.25 MG in SODIUM CHLORIDE 0.9% 50 ML IV PRN (10:22)
[2020-08-05] MEDS ORDERED: ONDANSETRON INJ 2 MG/ML 2 ML VIAL IV PRN ×2 (10:22→14:39)
[2020-08-05] MEDS ORDERED: HYDROmorphone INJ 2 MG/ML SYR/VIAL IV PRN (10:22)
--- NOTE | 2020-08-05 10:35 | History & Physical Bridge Note ---
Date of Service August 05, 2020 History & Physical Bridge Note I have examined the patient, reviewed the History & Physical and in the interval since the performance of the History & Physical I have noted the following changes of clinical significance: no changes noted
--- NOTE | 2020-08-05 10:36 | History & Physical Report ---
Date of Service August 05, 2020 Assessment & Plan (1) Neurogenic claudication due to lumbar spinal stenosis: Admission and Anticipated Discharge Date Admission Date: L4-5 decompression fusion, L5-S1 hardware removal History of Present Illness Chief Complaint: Back and bilateral leg pain Primary Care Provider: Lynne Carvalho DO This is a 54-year-old female known to me the presents with chronic persistent back and bilateral leg pain. After failing course of nonoperative care is here for surgical invention. Allergies Allergy/AdvReac Type Severity Reaction Status Date / Time Iodinated Contrast Media AdvReac Mild NAUSEA Verified 08/05/20 10:08 Home Medications Medication Instructions Recorded Confirmed Type celecoxib 200 mg PO BID 07/12/18 08/05/20 History duloxetine 60 mg PO HS 07/12/18 08/05/20 History pantoprazole 1 tab PO QPM 07/12/18 08/05/20 History cetirizine 10 mg PO HS 07/19/18 08/05/20 History cholecalciferol (vitamin D3) 5,000 unit PO QAM 07/19/18 08/05/20 History [Vitamin D3] cyanocobalamin (vitamin B-12) 1,000 mcg PO QAM 07/19/18 08/05/20 History duloxetine 90 mg PO QAM 12/28/19 08/05/20 History acetazolamide [Diamox] 500 mg PO BID 07/09/20 08/05/20 History bupropion HCl 150 mg PO QAM 07/09/20 08/05/20 History levothyroxine 75 mcg PO QAM 07/09/20 08/05/20 History linaclotide [Linzess] 72 mcg PO QAM 07/09/20 08/05/20 History sumatriptan succinate 6 mg SUBCUT UD PRN 07/09/20 08/05/20 History zolpidem 10 mg PO HS PRN 07/09/20 08/05/20 History Past Med/Surg History Medical History Cervical spine fracture HX OF 2001 ([facility]) Degenerative disc disease Depression Fibromyalgia GERD (gastroesophageal reflux disease) History of Chiari malformation s/p surgical intervention. Follows with Dr. Ballard [facility]. History of gastric ulcer Hypothyroidism Irritable bowel disease Migraine Osteoarthritis Ovarian cyst HX OF Sensorineural hearing loss (SNHL) of both ears Spinal stenosis Surgical History Fusion of spine CERVICAL 5-6-7 LUMBAR H/O craniotomy 2015/[facility] (TO CORRECT CHIARI MALFORMATION) and then repeat in 2019/[facility] H/O hand surgery x2 (LEFT) History of bilateral tubal ligation History of colonoscopy History of endoscopic sinus surgery History of esophagogastroduodenoscopy (EGD) History of hysterectomy History of tooth extraction S/P foot surgery, left HX OF x2 Family History Mother Family history of diabetes mellitus Hypertension Heart disease Asthma Father Hypertension Heart disease Grandmother Cancer Aunt Cancer Son Allergies Asthma Denies family history of Hearing loss No family history of adverse response to anesthesia No family history of bleeding disorder Stroke Social History (Updated 02/20/20 @ 15:01 by Ramya Mireles RN) Smoking Status: Current every day smoker Cigarettes Per Day: 5-10 CIG DAILY; Second Hand Exposure: No; Do You Dip or Chew Tobacco: No; Tobacco Cessation Education Requested by Patient: No Hx Alcohol Use: No Hx Substance Use: No Preferred Language: Czech Communication Ability: Effective Visual Impairment: No Limitations 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
[2020-08-05] MEDS ORDERED: BACITRACIN INJ 50,000 UNIT VIAL ONE (10:52)
[2020-08-05] MEDS ORDERED: BUPIVACAINE/EPINEPHRINE 0.5% MPF 1:200,000 30 ML VIAL ONE (10:52)
[2020-08-05] MEDS ORDERED: ePHEDrine sulfate 50 MG/ML SYR ONE (12:06)
[2020-08-05] MEDS ORDERED: PHENYLEPHRINE 100MCG/ML 5ML SYR ONE (12:06)
[2020-08-05] MEDS ORDERED: FLOSEAL HEMOSTATIC MATRIX 10ML TOP ONE (12:38)
[2020-08-05] MEDS ORDERED: NEOSTIGMINE METHYLSULFATE 1 MG/ML 10ML VIAL ONE (12:50)
[2020-08-05] MEDS ORDERED: GLYCOPYRROLATE 0.2 MG/ML VIAL ONE (12:50)
--- NOTE | 2020-08-05 12:55 | Operative Report ---
Post Operative Report Pre & Post Diagnosis Operation Date: 08/05/20 11:05 Pre-Op Diagnosis: Spinal Stenosis, Lumbar Region with Neurogenic Claudication Post-Op Diagnosis: Spinal Stenosis, Lumbar Region with Neurogenic Claudication I identified the patient and participated in the time-out.: Yes Procedure Operation Date: 08/05/20 11:05 Actual Procedures #1 Removal of posterior instrumentation L5-S1. #2 exploration of fusion L5-S1. #3 lumbar decompression with bilateral medial facetectomies foraminotomies L3-4 and L4-5. #4 posterior spinal fusion L4-5. #5 placement posterior instrumentation L4-5. #6 interbody fusion L4-5. #7 placement of peek cage 12 x 22 mm at L4-L5. #8 placement locally harvested morselized autograft in the posterior lateral gutters. #9 placement of I factor interbody space and posterior lateral gutters. Surgeon Kurt Matias, DO Stockroom Helper Janki Millan Estimated Blood Loss 100 Findings See Below The patient is 5 foot 2 weighs over 80 kg with a BMI in excess of 32. Patient's body habitus did contribute to significant technical difficulty adding at least 25% increase to the operative time. Specimens None Indications This is a 54-year-old female who presents with above-mentioned diagnosis after failing since course of nonoperative care she is here for surgical invention. Description of Procedure Patient was met with identified informed consent obtained. Patient was then taken to the operative suite underwent a patient placed in a prone position the [place] table top Rk frame. All bony prominences well-padded eyes inspected to ensure no external pressure placed upon the. This point lumbar spine was prepped and draped in sterile fashion. Sharp dissection with assistance of Bovie cautery was performed down to and exposing the lamina and transverse processes of L4 and the instrumentation at L5 and S1 levels bilaterally. I then proceeded to move the hardware at L5 is 1 explore the fusion mass noting to be intact. And then performed a complete laminectomy of L4 partial laminectomy of L3 including bilateral medial facetectomies and foraminotomies addressing severe spinal stenosis. Pedicle screws were then placed in L4 and L5 bilaterally with assistance of fluoroscopy the purposes tammie placed. By way of a transfemoral approach on the right a complete discectomy of L4-L5 was performed endplates curetted to subcortical bleeding bone and a 12 x 22 mm peek cage filled with I factor tapped in position. The rods were then locked into final position bilaterally. The transverse processes of L4 and L5 burred to subcortical bleeding bone. Infuse collagen sponge master graft local autograft was placed in the posterior lateral gutters. 15 round TISHA drain inserted. The incision was then closed with 1 Vicryl the fascia 2-0 Vicryl subcutaneously and 4 Monocryl for final skin closure. Steri-Strip sterile dressings placed. Patient waken taken PACU stable condition. Please note spinal cord monitoring was utilized throughout the procedure no changes noted. Lastly Janki Millan was present at the entire surgery involved the patient positioning complex portions of the surgery and final skin closure. I attest to the content of the Intraoperative Record and any orders documented therein. Any exceptions are noted below.
--- NOTE | 2020-08-05 13:14 | Fluoroscopy Report ---
FL lumbar spine 2-3V CLINICAL HISTORY: L5-S1 REMOVE HARDWARE/L4-5 DECOMPRESSION/FUSION/INTERBODY COMPARISON STUDY: Lumbar spine MRI April 09, 2020. FLUOROSCOPY TIME: 11 seconds. FLUOROSCOPIC IMAGES: 2 FINDINGS: Previous L5-S1 discectomy with interbody spacer placement as noted. L5-S1 hardware was shawna maxi. Interval L4-L5 discectomy with interbody spacer placement as noted. There is a posterior decompr ession with bilateral pedicle screws at the L4 and L5 levels. Hardware is intact. Final image obtaine d at 11:49 demonstrates removal of the sponge. IMPRESSION: Fluoroscopy provided for hardware removal and interval L4-L5 discectomy, posterior decom pression and bilateral pedicle screw fusion. ACT 112: Negative or not required by law. Electronically signed by: Marlon Perales M.D. 08/05/2020 1:12 PM
[2020-08-05] MEDS: fentaNYL citrate 100 MCG/2 ML VIAL IV PRN ×2 (13:23→13:28)
[2020-08-05] MEDS: LACTATED RINGER'S 1,000 ML IV SCH (14:30)
[2020-08-05] MEDS ORDERED: MAGNESIUM HYDROXIDE SUSP 30 ML UDC PO PRN (14:39)
[2020-08-05] MEDS ORDERED: FAMOTIDINE 20 MG TAB PO PRN (14:39)
[2020-08-05] MEDS ORDERED: NALOXONE HCL 0.4 MG/1 ML VIAL/CARP IV PRN (14:39)
[2020-08-05] MEDS ORDERED: ONDANSETRON 4 MG OD TAB PO PRN (14:39)
[2020-08-05] MEDS ORDERED: hydrOXYzine HCl 25 MG TAB PO PRN (14:39)
[2020-08-05] MEDS ORDERED: ALUMINUM/MAGNESIUM SUSP 30 ML UDC PO PRN (14:39)
[2020-08-05] MEDS ORDERED: ACETAMINOPHEN 500 MG TAB PO PRN (14:39)
[2020-08-05] MEDS ORDERED: PROMETHAZINE HCL 12.5 MG in SODIUM CHLORIDE 0.9% 50 ML IV PRN (14:39)
[2020-08-05] MEDS ORDERED: DO NOT ADMINISTER FLU VACCINE PRN (14:39)
[2020-08-05] MEDS ORDERED: HYDROmorphone INJ 0.5 MG/0.5 ML SYR IV PRN (14:39)
[2020-08-05] MEDS ORDERED: METOCLOPRAMIDE HCL INJ 5 MG/ML 2 ML VIAL IV PRN (14:39)
[2020-08-05] MEDS ORDERED: SOD PHOSPHATE/SOD BIPHOSPHATE ENEMA 132 ML BTL PR PRN (14:39)
[2020-08-05] MEDS ORDERED: DO NOT ADMINISTER PNEUMOCOCCAL VACCINE PRN (14:39)
[2020-08-05] MEDS ORDERED: LORazepam 0.5 MG/1 ML VIAL IV PRN (14:39)
[2020-08-05] MEDS ORDERED: ACETAMINOPHEN 1,000 MG/100 ML VIAL IV PRN (14:39)
[2020-08-05] MEDS ORDERED: HYDROmorphone INJ 1 MG/ML SYRINGE IV PRN (14:39)
[2020-08-05] MEDS ORDERED: bisacodyL 10 MG SUPP PR PRN (14:39)
[2020-08-05] MEDS ORDERED: diphenhydrAMINE Capsule 25 MG CAP PO PRN (14:39)
[2020-08-05] MEDS: KETOROLAC 30 MG/ML VIAL IV SCH ×2 (15:18→20:48)
--- NOTE | 2020-08-05 15:18 | Hospitalist Consultation ---
Date of Consultation August 05, 2020 Assessment & Plan (1) Neurogenic claudication due to lumbar spinal stenosis: Status post L4-5 lumbar decompression fusion with removal of hardware at L5-S1 on 08/[address] Matias Postoperative care as per Dr. Matias Viera catheter in place Check CBC, BMP in the morning Follow blood pressures as she tends to run low to begin with Pain control, bowel regimen, antiemetics as per orthopedic surgery (2) Chronic migraine without aura, intractable, with status migrainosus: Continue home Diamox Follows with neurology at [facility] (3) Chiari malformation type I: Status post surgery x2 with neurosurgery in [facility] (4) Fibromyalgia: Stable Continue home duloxetine (5) GERD (gastroesophageal reflux disease): No acute issues -Continue PPI (6) Irritable bowel disease: Diarrheal type Continue home Linzess (7) Hypothyroidism: TSH normal in 01/2020 Continue home levothyroxine (8) DVT prophylaxis: SCDs Disposition-continues to medical/surgical floor Hospital service will follow along History of Present Illness Reason for Consultation: Postoperative medical management Requesting Physician: Dr. Matias Attending Physician: Kurt Matias, DO History of Present Illness This patient is a 34-year-old female with a history of Chiari malformation, C1- C2 fracture and laminectomy, chronic headaches, fibromyalgia, GERD, depression, peptic ulcer disease, IBS, osteoarthritis, hypothyroidism, and lumbar spinal stenosis who was admitted to the hospital after undergoing an L4-L5 decompression and fusion with removal of hardware L5-S1. The hospital service was consulted for postoperative medical management. The patient reports she is feeling well. She has some pain with trying to sit up in the lower back. She has no further pain down her bilateral lower extremities like she did preoperatively. She denies any chest pain or shortness of breath, no nausea or vomiting, no abdominal pains. She has a chronic daily headache and is currently an 8 out of 10 in severity which is average for her. Allergies Allergy/AdvReac Type Severity Reaction Status Date / Time Iodinated Contrast Media AdvReac Mild NAUSEA Verified 08/05/20 10:08 Home Medications Medication Instructions Recorded Confirmed Type celecoxib 200 mg PO BID 07/12/18 08/05/20 History duloxetine 60 mg PO HS 07/12/18 08/05/20 History pantoprazole 1 tab PO QPM 07/12/18 08/05/20 History cetirizine 10 mg PO HS 07/19/18 08/05/20 History cholecalciferol (vitamin D3) 5,000 unit PO QAM 07/19/18 08/05/20 History [Vitamin D3] cyanocobalamin (vitamin B-12) 1,000 mcg PO QAM 07/19/18 08/05/20 History duloxetine 90 mg PO QAM 12/28/19 08/05/20 History acetazolamide [Diamox] 500 mg PO BID 07/09/20 08/05/20 History bupropion HCl 150 mg PO QAM 07/09/20 08/05/20 History levothyroxine 75 mcg PO QAM 07/09/20 08/05/20 History linaclotide [Linzess] 72 mcg PO QAM 07/09/20 08/05/20 History sumatriptan succinate 6 mg SUBCUT UD PRN 07/09/20 08/05/20 History zolpidem 10 mg PO HS PRN 07/09/20 08/05/20 History Patient History Medical History Cervical spine fracture HX OF 2001 ([facility]) Degenerative disc disease Depression Fibromyalgia GERD (gastroesophageal reflux disease) History of Chiari malformation s/p surgical intervention. Follows with Dr. Ballard [facility]. History of gastric ulcer Hypothyroidism Irritable bowel disease Migraine Osteoarthritis Ovarian cyst HX OF Sensorineural hearing loss (SNHL) of both ears Spinal stenosis Surgical History Fusion of spine CERVICAL 5-6-7 LUMBAR H/O craniotomy 2015/[facility] (TO CORRECT CHIARI MALFORMATION) and then repeat in 2019/[facility] H/O hand surgery x2 (LEFT) History of bilateral tubal ligation History of colonoscopy History of endoscopic sinus surgery History of esophagogastroduodenoscopy (EGD) History of hysterectomy History of tooth extraction S/P foot surgery, left HX OF x2 Family History Mother Family history of diabetes mellitus Hypertension Heart disease Asthma Father Hypertension Heart disease Grandmother Cancer Aunt Cancer Son Allergies Asthma Denies family history of Hearing loss No family history of adverse response to anesthesia No family history of bleeding disorder Stroke Social History Smoking Status: Current every day smoker Cigarettes Per Day: 5-10 CIG DAILY; Second Hand Exposure: No; Do You Dip or Chew Tobacco: No; Tobacco Cessation Education Requested by Patient: No Hx Alcohol Use: No Hx Substance Use: No Preferred Language: Swedish Communication Ability: Effective Visual Impairment: No Limitations Cereal Popper Required: No Beliefs That Will Affect Care: None marital status: Current Living Situation: Family Current Living Situation Comment: AND SON current occupational status: disabled How many Children do You have: 2 Feels Safe at Home: Yes Safety Concerns: Feels Safe At This Time Assistive Devices: Glasses Review of Systems Review of Systems: All systems reviewed & are unremarkable except as noted in HPI & below Physical Exam Constitutional: WD/WN, vitals as above Eyes: + anicteric sclerae and EOM intact bilaterally Neck: trachea midline, no thyromegaly Respiratory: normal respiratory effort, lungs clear to auscultation Cardiovascular: RRR, no murmur, no edema Chest (Breasts): Chest: normal inspection of chest Gastrointestinal (Abdomen): normal bowel sounds, soft, nontender, no hepatosplenomegaly Musculoskeletal: Extremities: extremities normal to inspection; no cyanosis and no clubbing Skin: no rashes, warm and dry Neurologic: moves all extremities and awake; no focal motor deficits Psychiatric: A+Ox3, euthymic affect Genitourinary: Viera catheter in place draining clear yellow urine Lymphatic: no lymphedema Results & Data Results & Data ([facility]) Vital Signs (Past 12 Hours) Vital Signs Temp Pulse Pulse Resp BP Pulse Ox 08/05/20 14:55 36.7 C 92 H 16 103/67 94 08/05/20 14:25 36.5 C 84 20 104/67 96 08/05/20 14:15 85 12 113/63 95 08/05/20 14:00 86 20 103/61 93 08/05/20 13:45 36.3 C L 88 16 98/60 L 95 08/05/20 13:40 90 16 105/58 L 96 08/05/20 13:30 89 13 117/62 96 08/05/20 13:20 88 16 103/55 L 99 04/06/21 13:10 36.5 C 85 18 102/64 97 08/05/20 10:12 36.5 C 84 18 118/70 99 Laboratory Results Preoperative laboratory values reviewed Diagnostic Findings Preoperative chest x-ray reviewed- XR chest Pre-admission PA/Lat HISTORY: 54 years-old Female pat preoperative exam. No acute chest complaints COMPARISON: Chest radiographs 12/29/2018 TECHNIQUE: PA and lateral views of the chest FINDINGS: Cardiomediastinal and hilar silhouettes are within normal limits. There is no pneumothorax, pleural effusion, airspace consolidation or overt pulmonary edema. The bones of the chest appear grossly intact. Lower cervical spinal fusion hardware. IMPRESSION: No acute process. ECG Additional Comments: Preoperative ECG reviewed from 07/22/2020 at 1236 shows: Normal sinus rhythm, rate 78, otherwise normal PG Care Time/CCT Total # of Minutes Spent Total Time Spent with Patient: Total time spent is greater than 50% in coordination of care (as documented) at patient's floor/unit and/or counseling patient: Coding Level of Care Code 66339 Inpt Consult Level 3 Diagnoses Neurogenic claudication due to lumbar spinal stenosis M48.062 Chronic migraine without aura, intractable, with status migrainosus G43.711 Chiari malformation type I G93.5 Fibromyalgia M79.7 GERD (gastroesophageal reflux disease) K21.9 Irritable bowel disease K58.9 Hypothyroidism E03.9 DVT prophylaxis Z29.9
[2020-08-05] MEDS: oxyCODONE HCL IR 5 MG TAB (IMMEDIATE RELEASE) PO PRN ×2 (15:23→19:34)
--- NOTE | 2020-08-05 15:47 | Anesthesiology Progress Note ---
Date of Service August 05, 2020 Anesthesia Post Procedure Vital Signs Vital Signs: Temp Pulse Pulse Resp BP Pulse Ox 08/05/20 15:29 36.7 C 92 H 17 107/69 94 08/05/20 14:55 36.7 C 92 H 16 103/67 94 08/05/20 14:25 36.5 C 84 20 104/67 96 08/05/20 14:15 85 12 113/63 95 08/05/20 14:00 86 20 103/61 93 08/05/20 13:45 36.3 C L 88 16 98/60 L 95 08/05/20 13:40 90 16 105/58 L 96 08/05/20 13:30 89 13 117/62 96 08/05/20 13:20 88 16 103/55 L 99 08/05/20 13:10 36.5 C 85 18 102/64 97 08/05/20 10:12 36.5 C 84 18 118/70 99 Pain Intensity Lower Back: Pain Intensity: 8 Transfer of Care Handoff Completed per policy Notes Mental Status: alert / awake / arousable and participated in evaluation Patient Amnestic to Procedure: Yes Nausea / Vomiting: adequately controlled Pain: adequately controlled Airway Patency, RR, SpO2: stable & adequate BP & HR: stable & adequate Hydration State: stable & adequate Anesthetic Complications: no major complications apparent and Pt Satisfied with anesthetic care
[2020-08-05] MEDS: ceFAZolin 2000MG 2,000 MG/15 ML SYR IV SCH (18:30)
[2020-08-05] MEDS: SUMAtriptan succinate 6 MG/0.5 ML VIAL SQ PRN (19:34)
[2020-08-05] MEDS: ZOLPIDEM TARTRATE 10 MG TAB PO PRN (20:46)
[2020-08-05] MEDS: acetaZOLAMIDE 500 MG CAPCR PO SCH (20:47)
[2020-08-05] MEDS: CETIRIZINE HCL 10 MG TABLET PO SCH (20:47)
[2020-08-05] MEDS: DULoxetine HCL 60 MG CAP PO SCH (20:47)
[2020-08-05] MEDS: DOCUSATE SODIUM/SENNA 50/8.6MG TAB PO SCH (20:47)
[2020-08-05] MEDS: PANTOprazole 40 MG TAB PO SCH (20:48)
[2020-08-06] MEDS: LACTATED RINGER'S 1,000 ML IV SCH (00:15)
[2020-08-06] MEDS: ceFAZolin 2000MG 2,000 MG/15 ML SYR IV SCH (03:06)
[2020-08-06] MEDS: KETOROLAC 30 MG/ML VIAL IV SCH ×2 (03:07→09:24)
[2020-08-06] MEDS: oxyCODONE HCL IR 5 MG TAB (IMMEDIATE RELEASE) PO PRN ×5 (03:07→22:17)
[2020-08-06] MEDS: POLYETHYLENE (MIRALAX) 17 GM PACK PO SCH ×2 (05:48→12:45)
[2020-08-06] MEDS: traMADol HCL 50 MG TABLET PO PRN ×2 (05:48→17:05)
[2020-08-06] MEDS: LEVOTHYROXINE SODIUM 75 MCG TABLET PO SCH (05:48)
[2020-08-06 07:27] LABS: Hematocrit (blood only) 34.8 % (37-47); Hemoglobin 11.5 g/dL (12.0-16.0); Immature Granulocytes # (auto) 0.03 K/uL (0.00-0.02); Immature Granulocytes % (auto) 0.4 %; Lymphocytes # (auto) 0.69 K/uL (1.2-3.4); Lymphocytes % (auto) 8.2 %; Mean Platelet Volume 10.5 fL (7.4-10.4); Monocytes # (auto) 0.45 K/uL (0.11-0.59); Monocytes % (auto) 5.3 %; Neutrophils # (auto) 7.29 K/uL (1.4-6.5); Neutrophils % (auto) 86.1 %; Platelet Count 141 K/uL (130-400); RDW Coefficient of Variation 13.2 % (11.5-14.5); RDW Standard Deviation 48.1 fL (36.4-46.3); Red Blood Count 3.48 M/uL (4.2-5.4); White Blood Count 8.46 K/uL (4.8-10.8)
[2020-08-06 08:01] LABS: BUN Creatinine Ratio 18.8 (10-20); Calcium 8.8 mg/dl (8.5-10.1); Creatinine Clr Calc Pharmacy 82.9 ml/min; Est GFR (African American) 102.2; Est GFR (Non-African American) 88.2; Potassium 3.7 mmol/L (3.5-5.1)
[2020-08-06] MEDS: CHOLECALCIFEROL 1,000 UNITS 25 MCG TAB PO SCH (09:23)
[2020-08-06] MEDS: DULoxetine HCL 30 MG CAP PO SCH (09:24)
[2020-08-06] MEDS: buPROPion XL 150 MG TABCR PO SCH (09:24)
[2020-08-06] MEDS: CYANOCOBALAMIN 500 MCG TABLET (VITAMIN B-12) PO SCH (09:24)
[2020-08-06] MEDS: linaCLOtide 72 MCG CAPSULE PO SCH (09:24)
[2020-08-06] MEDS: acetaZOLAMIDE 500 MG CAPCR PO SCH ×2 (09:24→19:31)
[2020-08-06] MEDS ORDERED: SIMETHICONE 80 MG CHEW PO PRN (12:20)
--- NOTE | 2020-08-06 14:07 | Orthopedic Progress Note ---
Date of Service August 06, 2020 Assessment & Plan (1) Neurogenic claudication due to lumbar spinal stenosis: Admission and Anticipated Discharge Date Admission Date: August 05, 2020 At this time continue physical therapy monitor TISHA operatively discharge home in next few days. Subjective Back pain controlled leg pain improved Physical Exam Physical Exam: Patient is good strength testing appears comfortable. Results & Data ([facility]) Vital Signs (Past 12 Hours) Vital Signs Temp Pulse Resp BP Pulse Ox 08/06/20 07:40 36.9 C 78 16 101/65 93 08/06/20 03:25 36.6 C 76 16 103/57 L 94
--- NOTE | 2020-08-06 15:49 | Hospitalist Progress Note ---
Date of Service August 06, 2020 Assessment & Plan (1) Neurogenic claudication due to lumbar spinal stenosis: Status post L4-5 lumbar decompression fusion with removal of hardware at L5-S1 on 08/[address] Matias Postoperative care as per Dr. Matias Viera catheter now removed, TISHA drain in place CBC with only mild hgb drop to 11.5 from 13.4, hemodynamically stable Pain control, bowel regimen, antiemetics as per orthopedic surgery -added simethicone, encouraged Miralax use and ambulation to help with gas pains; abdomen soft and passing some flatus (2) Chronic migraine without aura, intractable, with status migrainosus: Continue home Diamox Improved from yesterday Follows with neurology at [facility] (3) Chiari malformation type I: Status post surgery x2 with neurosurgery in [facility] (4) Fibromyalgia: Stable Continue home duloxetine (5) GERD (gastroesophageal reflux disease): No acute issues -Continue PPI (6) Irritable bowel disease: constipation type Continue home Linzess (7) Hypothyroidism: TSH normal in 01/2020 Continue home levothyroxine (8) DVT prophylaxis: SCDs Disposition-continues to medical/surgical floor Hospital service will sign off. Please feel free to reconsult if new or acute issues arise. Admission and Anticipated Discharge Date Admission Date: August 05, 2020 Subjective Pt had some gas cramping pains earlier which are a little better now with simethicone. She had her last BM yesterday AM. Says her headache is better than yesterday. Denies CP or SOB, no nausea/vomiting, is eating well. Was OOB and ambulated in the halls today. Review of Systems Review of Systems: All systems reviewed & are unremarkable except as noted in HPI & below Physical Exam Constitutional: WD/WN, vitals as above Eyes: + anicteric sclerae Neck: trachea midline, no thyromegaly Respiratory: normal respiratory effort, lungs clear to auscultation Cardiovascular: RRR, no murmur, no edema Chest (Breasts): Chest: normal inspection of chest Gastrointestinal (Abdomen): normal bowel sounds, soft, nontender, no hepatosplenomegaly Musculoskeletal: Extremities: extremities normal to inspection; no cyanosis and no clubbing Skin: no rashes, warm and dry Neurologic: moves all extremities and awake; no focal motor deficits Psychiatric: A+Ox3, euthymic affect Lymphatic: no lymphedema Results & Data Results & Data ([facility]) Vital Signs (Past 12 Hours) Vital Signs Temp Pulse Resp BP Pulse Ox 08/06/20 07:40 36.9 C 78 16 101/65 93 Laboratory Results 08/06/20 08/06/20 Range/Units 07:05 07:05 WBC 8.46 (4.8-10.8) K/uL RBC 3.48 L (4.2-5.4) M/uL Hgb 11.5 L (12.0-16.0) g/dL Hct 34.8 L (37-47) % MCV 100.0 (80-100) fL MCH 33.0 (25-34) pg MCHC 33.0 (32-36) g/dL RDW Std Deviation 48.1 H (36.4-46.3) fL RDW Coeff of Devan 13.2 (11.5-14.5) % Plt Count 141 (130-400) K/uL MPV 10.5 H (7.4-10.4) fL Immature Gran % (Auto) 0.4 % Neut % (Auto) 86.1 % Lymph % (Auto) 8.2 % [place] % (Auto) 5.3 % Eos % (Auto) 0.0 % Baso % (Auto) 0.0 % Neut # (Auto) 7.29 H (1.4-6.5) K/uL Lymph # (Auto) 0.69 L (1.2-3.4) K/uL [place] # (Auto) 0.45 (0.11-0.59) K/uL Eos # (Auto) 0.00 (0-0.5) K/uL Baso # (Auto) 0.00 (0-0.2) K/uL Immature Gran # (Auto) 0.03 H (0.00-0.02) K/uL Sodium 140 (136-145) mmol/L Potassium 3.7 (3.5-5.1) mmol/L Chloride 113 H (98-107) mmol/L Carbon Dioxide 21 (21-32) mmol/L Anion Gap 6.0 (3-11) BUN 15 (7-18) mg/dl Creatinine 0.77 (0.6-1.2) mg/dl Est Cr Clr Drug Dosing 82.9 ml/min Est GFR ( Amer) 102.2 Est GFR (Non-Af Amer) 88.2 BUN/Creatinine Ratio 18.8 (10-20) Glucose 115 H (70-99) mg/dl Calcium 8.8 (8.5-10.1) mg/dl PG Care Time/CCT Total # of Minutes Spent Total Time Spent with Patient: Total time spent is greater than 50% in coordination of care (as documented) at patient's floor/unit and/or counseling patient: Coding Level of Care Code 05392 Subseq Hosp Care Lvl 1 Diagnoses Neurogenic claudication due to lumbar spinal stenosis M48.062 Chronic migraine without aura, intractable, with status migrainosus G43.711 Chiari malformation type I G93.5 Fibromyalgia M79.7 GERD (gastroesophageal reflux disease) K21.9 Irritable bowel disease K58.9 Hypothyroidism E03.9 DVT prophylaxis Z29.9
[2020-08-06] MEDS: CETIRIZINE HCL 10 MG TABLET PO SCH (19:31)
[2020-08-06] MEDS: DULoxetine HCL 60 MG CAP PO SCH (19:31)
[2020-08-06] MEDS: PANTOprazole 40 MG TAB PO SCH (19:31)
[2020-08-06] MEDS: DOCUSATE SODIUM/SENNA 50/8.6MG TAB PO SCH (19:32)
[2020-08-06] MEDS: ZOLPIDEM TARTRATE 10 MG TAB PO PRN (22:17)
[2020-08-06] MEDS: LORazepam 0.5 MG TAB PO PRN (22:17)
[2020-08-07] MEDS: LEVOTHYROXINE SODIUM 75 MCG TABLET PO SCH (05:20)
[2020-08-07] MEDS: oxyCODONE HCL IR 5 MG TAB (IMMEDIATE RELEASE) PO PRN ×3 (07:03→20:37)
[2020-08-07] MEDS: linaCLOtide 72 MCG CAPSULE PO SCH (07:04)
[2020-08-07] MEDS: buPROPion XL 150 MG TABCR PO SCH (07:04)
[2020-08-07] MEDS: dexAMETHasone 8 MG in SYRINGE 0 ML IV SCH (07:04)
[2020-08-07] MEDS: CYANOCOBALAMIN 500 MCG TABLET (VITAMIN B-12) PO SCH (07:05)
[2020-08-07] MEDS: CHOLECALCIFEROL 1,000 UNITS 25 MCG TAB PO SCH (07:05)
[2020-08-07] MEDS: DULoxetine HCL 30 MG CAP PO SCH (07:05)
[2020-08-07] MEDS: acetaZOLAMIDE 500 MG CAPCR PO SCH ×2 (07:06→20:39)
[2020-08-07] MEDS: SUMAtriptan succinate 6 MG/0.5 ML VIAL SQ PRN (09:55)
[2020-08-07] MEDS: LORazepam 0.5 MG TAB PO PRN ×2 (09:55→20:39)
--- NOTE | 2020-08-07 11:16 | Orthopedic Progress Note ---
Date of Service August 07, 2020 Assessment & Plan (1) Neurogenic claudication due to lumbar spinal stenosis: Admission and Anticipated Discharge Date Admission Date: August 05, 2020 At this time continue physical therapy monitor TISHA output anticipate discharge home tomorrow. Subjective Back pain controlled leg pain improved Physical Exam Physical Exam: Patient is good strength testing appears comfortable. Results & Data ([facility]) Vital Signs (Past 12 Hours) Vital Signs Temp Pulse Resp BP Pulse Ox 08/07/20 07:38 36.8 C 90 16 94/60 L 94
[2020-08-07] MEDS: traMADol HCL 50 MG TABLET PO PRN (17:31)
[2020-08-07] MEDS: DOCUSATE SODIUM/SENNA 50/8.6MG TAB PO SCH (20:38)
[2020-08-07] MEDS: PANTOprazole 40 MG TAB PO SCH (20:39)
[2020-08-07] MEDS: DULoxetine HCL 60 MG CAP PO SCH (20:39)
[2020-08-07] MEDS: CETIRIZINE HCL 10 MG TABLET PO SCH (20:39)
[2020-08-07] MEDS: ZOLPIDEM TARTRATE 10 MG TAB PO PRN (20:39)
[2020-08-08] MEDS: oxyCODONE HCL IR 5 MG TAB (IMMEDIATE RELEASE) PO PRN ×2 (05:44→10:13)
[2020-08-08] MEDS: LEVOTHYROXINE SODIUM 75 MCG TABLET PO SCH (05:45)
[2020-08-08] MEDS: acetaZOLAMIDE 500 MG CAPCR PO SCH (09:52)
[2020-08-08] MEDS: dexAMETHasone 8 MG in SYRINGE 0 ML IV SCH ×2 (09:52→11:28)
[2020-08-08] MEDS: DULoxetine HCL 30 MG CAP PO SCH (09:53)
[2020-08-08] MEDS: linaCLOtide 72 MCG CAPSULE PO SCH (09:53)
[2020-08-08] MEDS: buPROPion XL 150 MG TABCR PO SCH (09:53)
[2020-08-08] MEDS: CHOLECALCIFEROL 1,000 UNITS 25 MCG TAB PO SCH (09:54)
[2020-08-08] MEDS: CYANOCOBALAMIN 500 MCG TABLET (VITAMIN B-12) PO SCH (09:55)
[2020-08-08] MEDS: traMADol HCL 50 MG TABLET PO PRN (13:38)
--- NOTE | 2020-08-08 14:19 | Discharge Summary ---
Date of Service August 08, 2020 Admission HPI Per Admitting Provider This is a 54-year-old female known to me the presents with chronic persistent back and bilateral leg pain. After failing course of nonoperative care is here for surgical invention. Principal Diagnosis Lumbar spinal stenosis with neurogenic claudication Discharge Data Allergies Allergy/AdvReac Type Severity Reaction Status Date / Time Iodinated Contrast Media AdvReac Mild NAUSEA Verified 08/05/20 10:08 Consultations 08/05/20 14:39 Consult Hospitalist Routine 08/05/20 14:51 Consult Hospitalist Routine Procedures Performed Operation Date: 08/05/20 11:05 Actual Procedures p L4-L5 Decompression Fusion with Insertion of Interbody, Spinal Cord Monitoring(Not Applicable) - Kurt Matias DO s L5-S1 Hardware Removal(Not Applicable) - Kurt Matias DO Ordered Studies 08/05/20 11:05 FL fluoroscopy <1hr Routine FL lumbar spine 2-3V Routine Hospital Course (1) Neurogenic claudication due to lumbar spinal stenosis: Patient underwent lumbar decompression fusion tolerated so was taken to orthopedic for postop labor postop day and when she was up and ambulating progressive postop #2 on postop day #3 TISHA drain decreasing probably. Pain well controlled. Strength intact. Subsequent discharge home. Discharge orders instructions found the chart for further review. Total Time Total Time Spent Total Time Spent (In Minutes): 20 minutes Discharge Plan Discharge Items Patient Disposition: Home - Self-Care Reason For Visit: Spinal Stenosis, Lumbar Region with Neurogenic Discharge Diagnosis: Lumbar spinal stenosis with neurogenic claudication Activity: As commented below Non-emergency contact: Primary Care Provider Call non-emergency contact if: you have any medication questions Follow-up/Referrals: Lynne Carvalho DO [Primary Care Provider] - Diet: Regular Addtl Attending Provider Instructions: ACTIVITY RECOMMENDATIONS: SELF CARE INSTRUCTIONS AFTER THORACIC/LUMBAR FUSIONS 1. You may walk to your tolerance. It is good exercise for your legs and back. Expect some back and intermittent leg aches and pains. 2. You may perform "counter-top" level activities (make a sandwich, raghav with a project, etc.). 3. No bending or lifting of more than 10 pounds or back twisting of any nature (roll like a log when turning in bed). 4. You may ride in a car for 20-30 minutes at a time. No driving until after your first visit with your doctor. 5. Frequent changes of position and restricting sitting to 30 minutes at a time will help limit the amount of back spasms and stiffness you may experience. 6. You may discontinue the use of ambulatory aids (cane, crutches, etc.) once your strength and confidence allow. 7. You may housing quality standard inspector the shower and let water strike your incision when you arrive home at least once daily. Do not take a tub bath, sit in a hot tub or go into a swimming pool until after your first recheck in the office. SPECIAL CARE INSTRUCTIONS: VERY IMPORTANT TO READ AND REVIEW A. Your surgical incision has been closed with a cosmetic suture under the skin that will dissolve in about 6 weeks. In 14 days, you can use a pair of clean scissors and cut the suture that is left outside of the skin at the ends of your incision. 1. The small skin tapes can be removed 7 days after surgery if they have not fallen off by that point. 2. You may keep the wound open to air as much as possible to promote healing after post-op day number 5 unless told otherwise by your doctor. 3. If you think the wound looks like it is becoming infected (redness or worsening drainage) and/or you are experiencing fever, chill or worsening back pain and muscle spasms, contact the office so that we may evaluate you as soon as possible. B. Complications are uncommon, but please contact us if you have any signs or symptoms of: 1. wound infection (fever higher than 102.5 degrees F, redness, separation of wound, drainage, or increasing pain from the incision) 2. blood clots in legs (pain, swelling, redness and warmth in legs) 3. urinary tract infection (fever higher than 102.5 degrees F, burning upon urination or increased frequency of urination) 4. nerve problems (inability to walk on your toes or heels, numbness, loss of bowel or bladder control) 5. any other symptoms that concern you C. Please call the office at if you have any concerns or que stions about your operation or recovery. D. No smoking! Smoking drastically decreases the chance of a solid fusion. E. Do not take any anti-inflammatory medications (Indocin, Advil, Motrin, Aspirin, Naprosyn, etc.) as these may inhibit the chance of a solid fusion. Tylenol is okay to take for pain. MANAGING PAIN AFTER SPINAL SURGERY 1. Narcotic medication is intended for short-term use and will be provided for surgical pain. Surgical pain usually lasts for a period of 4-6 weeks. Narcotic medication includes Percocet, Vicodin, Darvocet, Tylenol #3 or Lortab. 2. Longer-term pain is more appropriately treated with non-narcotic medication such as Tylenol ES. 3. Muscle spasm is not appropriately treated with narcotics. Muscle relaxers such as Soma, Flexeril or Skelaxin can be used along with Tylenol ES. 4. Remember that we all live with some "aches and pains". This is not unusual or uncommon after an injury or as we get older. a. Back pain is expected and may include muscle spasms for 4 to 6 weeks after surgery. The pain should gradually improve. If the pain worsens for no apparent reason, please contact the office. b. Intermittent leg pain may also be experienced and should not be concerned about unless it worsens for no apparent reason. If so, please contact the office. 5. We will provide appropriate medication within the normal guidelines of their prescribed use. We will also be very cautious and aware of potential abuse and extended duration of patients' medication needs. a. Pain medications are for your comfort and to assist with sleep and rest so that the tissue can heal. They are not provided in order to return to normal activity and should not be used through the day. To do so or worsening pain at night can result from ongoing tissue damage and development of tolerance to the prescribed medicine. 6. Please allow 2-3 days to process refills. Prescriptions will not be mailed but must be picked up at the office. FOLLOW UP VISIT: Keep your scheduled follow-up appointment. Any questions, please call the office at . Pending Studies at Discharge: No Stand-Alone Forms: My [facility], Opioid Pain Management, Work/School Release (Inpt), Smoking Cessation Medications and DC Order Prescriptions: New oxycodone 5 mg tablet 5 mg PO Q6H PRN (Reason: pain, severe) Qty: 30 RF: 0 tramadol 50 mg tablet 50 mg PO Q6H PRN (Reason: pain, moderate) Qty: 30 RF: 0 Continued celecoxib 200 mg capsule 200 mg PO BID RF: 0 pantoprazole 40 mg tablet,delayed release (DR/EC) 1 tab PO QPM RF: 0 duloxetine 60 mg capsule,delayed release(DR/EC) 60 mg PO HS RF: 0 cetirizine 10 mg Tablet 10 mg PO HS RF: 0 cyanocobalamin (vitamin B-12) 1,000 mcg Tablet 1,000 mcg PO QAM RF: 0 cholecalciferol (vitamin D3) [Vitamin D3] 5,000 unit Tablet 5,000 unit PO QAM RF: 0 duloxetine 60 mg Capsule,Delayed Release(Dr/Ec) 90 mg PO QAM RF: 0 acetazolamide 250 mg Tablet 500 mg PO BID RF: 0 levothyroxine 75 mcg Tablet 75 mcg PO QAM RF: 0 zolpidem 10 mg Tablet 10 mg PO HS PRN (Reason: Sleep) RF: 0 sumatriptan succinate 6 mg/0.5 mL Pen Injector 6 mg SUBCUT UD PRN (Reason: MIGRAINES) RF: 0 bupropion HCl 150 mg Tablet Extended Release 24 Hr 150 mg PO QAM RF: 0 Linzess 72 mcg Capsule 72 mcg PO QAM RF: 0 Discharge Orders: Discharge Order (Routine); Ordered 08/08/20 Ordered By: Kurt Espitia/Other Patient Handouts: Back Safety: Bending, Back Safety: Lifting, Back Safety: Turning, Post-Op Tips: Back Admission Data Admit Date/Time: 08/05/20 13:31 Attending Provider: Kurt Matias Admit Provider: Kurt Matias Primary Care Provider: Lynne Carvalho Other Providers: Neivn Nuno Other Interventions: Discharge Summary Assessment (RN) Last Done: 08/08/20 12:57
== END 2020-08-08 13:57 | disposition home or self-care (01) | DRG 455 ==
LOC: ASU 09:25 → 3W 13:31

== ENCOUNTER 2022-10-25 20:50 | Observation (INO) ==
[2022-10-25] MEDS ORDERED: diphenhydrAMINE 50 MG/ML VIAL IV STA (21:35)
[2022-10-25] MEDS ORDERED: SODIUM CHLORIDE 0.9% 1000ML 1,000 ML IV ONE (21:35)
[2022-10-25] MEDS ORDERED: DICYCLOMINE HCL 10 MG/ML 2 ML AMP/VIAL IM ONE (21:35)
[2022-10-25] MEDS ORDERED: METOCLOPRAMIDE HCL INJ 5 MG/ML 2 ML VIAL IV STA (21:35)
[2022-10-25 21:56] LABS: Basophils # (auto) 0.01 K/uL (0-0.2); Basophils % (auto) 0.2 %; Eosinophils # (auto) 0.07 K/uL (0-0.50); Eosinophils % (auto) 1.2 %; Hematocrit (blood only) 39.6 % (37.0-47.0); Hemoglobin 13.8 g/dl (12.0-16.0); Immature Granulocytes # (auto) 0.01 K/uL (0.01-0.20); Immature Granulocytes % (auto) 0.2 %; Lymphocytes # (auto) 0.99 K/uL (1.2-3.4); Lymphocytes % (auto) 16.9 %; Mean Corpuscular Hemoglobin 34.8 pg (25.0-34.0); Mean Corpuscular Hgb Conc 34.8 g/dL (32.0-36.0); Mean Corpuscular Volume 99.7 fL (80.0-100.0); Mean Platelet Volume 11.3 fL (9.4-12.4); Monocytes # (auto) 0.33 K/uL (0.11-0.59); Monocytes % (auto) 5.6 %; Neutrophils # (auto) 4.45 K/uL (1.40-6.50); Neutrophils % (auto) 75.9 %; Platelet Count 149 K/uL (130-400); RDW Coefficient of Variation 13.7 % (11.5-14.5); Red Blood Count 3.97 M/uL (4.20-5.40); White Blood Count 5.86 K/ul (4.8-10.8)
[2022-10-25 22:07] LABS: Alanine Aminotransferase 8 U/L (7-52); Albumin Level 4.5 gm/dl (3.4-5.0); Alkaline Phosphatase 56 U/L (34-104); Anion Gap 5 (3-11); Aspartate Aminotransferase 12 U/L (13-39); BUN Creatinine Ratio 21.2 (10-20); Bilirubin,Total 0.5 mg/dl (0.2-1.0); Blood Urea Nitrogen 18 mg/dl (6-23); Calcium 9.3 mg/dl (8.6-10.3); Carbon Dioxide 23 mmol/L (21-32); Chloride 113 mmol/L (98-107); Creatinine Clr Calc Pharmacy 58.4 ml/min; Est GFR (African American) 88.8 ml/min; Est GFR (Non-African American) 76.6 ml/min; Globulin 2.2 gm/dl (2.5-4.0); Glucose 92 mg/dl (70-99(Fasting)); Lipase 3 U/L (11-82); Magnesium 2.1 mg/dl (1.7-2.4); Potassium 3.2 mmol/L (3.5-5.1); Sodium 141 mmol/L (136-145); Total Protein 6.7 gm/dl (6.0-8.3)
[2022-10-25 22:12] LABS: Troponin I High Sensitivity < 2.3 pg/ml (0-14)
[2022-10-25 22:18] LABS: Appearance Urine Turbid (Clear); Bacteria Urine Automated Negative (Negative); Bilirubin Urine Negative (Negative); Blood Urine Negative (Negative); Color Urine Dark Yellow; Epithelial Cell Urine Auto >30 /lpf (0-5); Glucose Urine UA Negative (Negative); Ketones Urine 1+ (Negative); Leukocyte Esterase Urine Negative (Negative); Nitrite Urine Negative (Negative); Protein Urine Negative (Negative); RBC Urine Automated 0-4 /hpf (0-4); Urobilinogen Urine Negative (Negative)
--- NOTE | 2022-10-25 22:18 | Emergency Department Note ---
History of Present Illness General Chief complaint: Abdominal Pain Stated complaint: GASTRO ISSUES,VOMIT,DIARREAH Time Seen by Provider: 10/25/22 21:25 History of Present Illness Maximum Pain Intensity: 6 This 57-year-old female with IBS presents to the ER complaining of nausea, vomiting diarrhea and abdominal pain since yesterday. She is on well water. No recent antibiotics. No recent travel. No prior abdominal surgeries. Patient denies chest pain, dyspnea, fever, chills, flulike illness. Home Medications Medication Instructions Recorded Confirmed Type celecoxib 200 mg capsule 200 mg PO BID 07/12/18 10/25/22 History duloxetine 60 mg capsule,delayed 60 mg PO QAM 07/12/18 10/25/22 History release (Cymbalta) pantoprazole 40 mg tablet,delayed 1 tab PO QDD 07/12/18 10/25/22 History release cetirizine 10 mg tablet 10 mg PO HS 07/19/18 10/25/22 History cholecalciferol (vitamin D3) 125 5,000 unit PO QAM 07/19/18 10/25/22 History mcg (5,000 unit) tablet (Vitamin D3) cyanocobalamin (vitamin B-12) 1,000 mcg PO QAM 07/19/18 10/25/22 History 1,000 mcg tablet levothyroxine 75 mcg tablet 75 mcg PO QAM 07/09/20 10/25/22 History linaclotide 72 mcg capsule 72 mcg PO QAM 07/09/20 10/25/22 History (Linzess) sumatriptan succinate 6 mg/0.5 mL 6 mg subcut UD PRN MIGRAINES 07/09/20 10/25/22 History subcutaneous pen injector zolpidem 10 mg tablet 10 mg PO HS PRN Sleep 07/09/20 10/25/22 History cyclobenzaprine 5 mg tablet 5 mg PO HS 10/26/20 10/25/22 History hydroxyzine HCl 25 mg tablet 25 mg PO HS 10/26/20 10/25/22 History bupropion HCl 300 mg 24 hr tablet, 300 mg PO QAM 02/26/22 10/25/22 History extended release duloxetine 30 mg capsule,delayed 30 mg PO QAM 02/26/22 10/25/22 History release sprinkle topiramate 100 mg tablet 350 mg PO HS 02/26/22 10/25/22 History Allergies Allergy/AdvReac Type Severity Reaction Status Date / Time Iodinated Contrast Media AdvReac Intermediate NAUSEA/VOMI Verified 10/25/22 22:52 TING Past Med/Surg History Medical History Cervical spine fracture HX OF 2001 ([facility]) Degenerative disc disease Depression Fibromyalgia GERD (gastroesophageal reflux disease) History of Chiari malformation s/p surgical intervention. Follows with Dr. Ballard [facility]. History of gastric ulcer Hypothyroidism Irritable bowel disease Migraine Nausea and vomiting after administration of anesthetic agent Neurostimulator device in situ a device made by [employer] (patient has the card to bring DOS -- will bring magnet also) -- the stimulator is in patients head but the battery pack is in her lower back. patient aware the need to put the stimulator in surgery mode on her phone and will bring all the devices needed DOS. Follows with Dr. Farooq (Neurosurgeon [facility]) Osteoarthritis Ovarian cyst HX OF Sensorineural hearing loss (SNHL) of both ears Spinal stenosis Surgical History Fusion of spine CERVICAL 5-6-7 H/O craniotomy 2015/[facility] (TO CORRECT CHIARI MALFORMATION) and then repeat in 2019/[facility] [place] H/O hand surgery x2 (LEFT) History of bilateral tubal ligation History of colonoscopy History of endoscopic sinus surgery History of esophagogastroduodenoscopy (EGD) History of hysterectomy History of tooth extraction S/P epidural steroid injection S/P foot surgery, left HX OF x3 S/P lumbar fusion x2 with Dr Matias at [facility] S/P placement of nerve stimulator placed in June 2021 at [facility] and then a revision done in August 2021 at [facility]. Family History Mother Family history of diabetes mellitus Hypertension Heart disease Asthma Father Hypertension Heart disease Grandmother Cancer Aunt Cancer Son Allergies Asthma Denies family history of Hearing loss No family history of adverse response to anesthesia No family history of bleeding disorder Stroke Social History Smoking Status: Current some day smoker Tobacco Type: Cigarettes Cigarettes Per Day: 5-10; Second Hand Exposure: No; Do You Dip or Chew Tobacco: No; Hx Alcohol Use: No Hx Substance Use: No Preferred Language: [place] Communication Ability: Effective Visual Impairment: No Limitations 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 Required: No Beliefs That Will Affect Care: None marital status: Current Living Situation: Spouse and Family Current Living Situation Comment: AND SON current occupational status: disabled How many Children do You have: 2 Feels Safe at Home: Yes Assistive Devices: None Review of Systems A total of 10 systems reviewed and were otherwise negative Physical Exam Vital Signs Vital Signs - 24 hr 10/25/22 21:02 10/25/22 21:21 10/25/22 21:29 Temperature 36.9 C Temperature Source Temporal Artery Scan Pulse Rate 75 84 Pulse Rate [Left Apical] 77 Respiratory Rate 20 18 Respiratory Effort / Characteristics Non-Labored Spontaneous Respiratory Depth Normal Blood Pressure 102/65 Blood Pressure [Right Arm] 101/64 Blood Pressure Mean 77 Blood Pressure Mean [Right Arm] 76 Pulse Oximetry 100 99 Oxygen Delivery Method Room Air Sepsis Recent Fever Within 48 Hours No Sepsis New/Unexplained Change in Mental Status N/A Sepsis Action Taken by Nursing No Action Required 10/25/22 21:30 10/25/22 22:00 10/25/22 22:30 Temperature Temperature Source Pulse Rate 83 76 75 Pulse Rate [Left Apical] Respiratory Rate 26 H 19 20 Respiratory Effort / Characteristics Respiratory Depth Blood Pressure 116/64 99/65 L 103/71 Blood Pressure [Right Arm] Blood Pressure Mean 81 76 81 Blood Pressure Mean [Right Arm] Pulse Oximetry 96 99 98 Oxygen Delivery Method Room Air Room Air Room Air Sepsis Recent Fever Within 48 Hours Sepsis New/Unexplained Change in Mental Status Sepsis Action Taken by Nursing 10/25/22 23:00 10/25/22 23:43 Temperature Temperature Source Pulse Rate 75 73 Pulse Rate [Left Apical] Respiratory Rate 17 16 Respiratory Effort / Characteristics Respiratory Depth Blood Pressure 109/68 135/77 Blood Pressure [Right Arm] Blood Pressure Mean 81 96 Blood Pressure Mean [Right Arm] Pulse Oximetry 97 100 Oxygen Delivery Method Room Air Room Air Sepsis Recent Fever Within 48 Hours Sepsis New/Unexplained Change in Mental Status Sepsis Action Taken by Nursing VITALS: Vitals are noted on the nurse's note and reviewed by myself. Vital signs stable. GENERAL: Pleasant female, in no acute distress, nondiaphoretic, well-developed well-nourished. SKIN: The skin was without rashes, erythema, edema, or bruising. There is no tenting of the skin. Capillary reflex less than 2 seconds. HEAD: Normocephalic atraumatic. EARS: External auditory canals clear, EYES: Pupils equal round and reactive to light and accommodation. Conjunctivae without injection, sclerae without icterus. Extraocular movements intact. NOSE: Patent, turbinates without inflammation or discharge. MOUTH: Mucous membranes moist. Pharynx without erythema or exudate. Uvula midline. Airway patent. Tongue does not deviate. NECK: Supple without nuchal rigidity. No lymphadenopathy. No thyromegaly. Cervical spine is nontender. No JVD. HEART: Regular rate and rhythm LUNGS: Clear to auscultation bilaterally without wheezes, rales or rhonchi. No retractions or accessory muscle use. ABDOMEN: Positive bowel sounds x 4. Normal tympanic percussion. Soft, tender mid abdomen, without masses or organomegaly. Pelaez sign negative. No guarding or rebound tenderness. No CVA tenderness MUSCULOSKELETAL: No muscle atrophy, erythema, or edema noted. NEURO: Patient was alert and oriented to person place and time. Normal sensation to light and sharp touch. No focal neurological deficits. Course Administered Medications Sodium Chloride (Nss 1000ml) 1,000 mls @ 999 mls/hr IV .Q1H1M ONE Stop: 10/26/22 01:04 Last Admin: 10/26/22 00:24 Dose: 999 mls/hr Documented By: LEONEL Discontinued Medications Dicyclomine HCl (Dicyclomine Hcl 10 Mg/Ml 2 Ml Amp/Vial) 20 mg IM NOW ONE Stop: 10/25/22 21:36 Last Admin: 10/25/22 21:49 Dose: 20 mg Documented By: LEONEL Diphenhydramine HCl (Diphenhydramine 50 Mg/Ml Vial) 25 mg IV NOW STA Stop: 10/25/22 21:36 Last Admin: 10/25/22 21:49 Dose: 25 mg Documented By: LEONEL Sodium Chloride (Nss 1000ml) 1,000 mls @ 999 mls/hr IV .Q1H1M ONE Stop: 10/25/22 22:35 Last Infusion: 10/25/22 23:29 Dose: 0 mls/hr Documented By: Admin: 10/25/22 21:49 Dose: 999 mls/hr Documented By: LEONEL Famotidine (Pepcid 20mg Iv Push) 20 mg in 5 mls @ 2.5 mls/min IV NOW STA Stop: 10/25/22 23:01 Last Admin: 10/25/22 23:19 Dose: 2.5 mls/min Documented By: LEONEL Ioversol (Optiray 320 100ml) 100 ml IV ONCE ONE Stop: 10/25/22 22:53 Last Admin: 10/25/22 22:53 Dose: 92 ml Documented By: TITUS Lorazepam (Lorazepam 2 Mg/1 Ml Vial) 1 mg IV NOW STA Stop: 10/26/22 00:05 Last Admin: 10/26/22 00:23 Dose: 1 mg Documented By: LEONEL Metoclopramide HCl (Metoclopramide Hcl Inj 5 Mg/Ml 2 Ml Vial) 10 mg IV NOW STA Stop: 10/25/22 21:36 Last Admin: 10/25/22 21:49 Dose: 10 mg Documented By: LEONEL Ondansetron HCl (Ondansetron Inj 2 Mg/Ml 2 Ml Vial) 4 mg IV NOW STA Stop: 10/26/22 00:05 Last Admin: 10/26/22 00:23 Dose: 4 mg Documented By: LEONEL Potassium Chloride (Potassium Chloride 10 Meq Tabcr) 40 meq PO NOW STA Stop: 10/25/22 23:01 Last Admin: 10/25/22 23:19 Dose: 40 meq Documented By: LEONEL Medical Decision Making Medical Records Attestation: I reviewed the patient's medical records. Home Medications Current Medication List: was personally reviewed by me Laboratory Data Attestation: I reviewed the patient's lab results. 10/25/22 21:18 10/25/22 21:18 Lab Results 10/25/22 10/25/22 10/25/22 Range/Units 21:18 21:18 21:18 WBC 5.86 (4.8-10.8) K/ul RBC 3.97 L (4.20-5.40) M/uL Hgb 13.8 (12.0-16.0) g/dl Hct 39.6 (37.0-47.0) % MCV 99.7 (80.0-100.0) fL MCH 34.8 H (25.0-34.0) pg MCHC 34.8 (32.0-36.0) g/dL RDW Std Deviation 50.0 H (36.4-46.3) fL RDW Coeff of Devan 13.7 (11.5-14.5) % Plt Count 149 (130-400) K/uL MPV 11.3 (9.4-12.4) fL Immature Gran % (Auto) 0.2 % Neut % (Auto) 75.9 % Lymph % (Auto) 16.9 % Young % (Auto) 5.6 % Eos % (Auto) 1.2 % Baso % (Auto) 0.2 % Neut # (Auto) 4.45 (1.40-6.50) K/uL Lymph # (Auto) 0.99 L (1.2-3.4) K/uL Young # (Auto) 0.33 (0.11-0.59) K/uL Eos # (Auto) 0.07 (0-0.50) K/uL Baso # (Auto) 0.01 (0-0.2) K/uL Immature Gran # (Auto) 0.01 (0.01-0.20) K/uL Sodium 141 (136-145) mmol/L Potassium 3.2 L (3.5-5.1) mmol/L Chloride 113 H (98-107) mmol/L Carbon Dioxide 23 (21-32) mmol/L Anion Gap 5 (3-11) BUN 18 (6-23) mg/dl Creatinine 0.85 (0.6-1.2) mg/dl Est Cr Clr Drug Dosing 58.4 ml/min Est GFR ( Amer) 88.8 ml/min Est GFR (Non-Af Amer) 76.6 ml/min BUN/Creatinine Ratio 21.2 H (10-20) Glucose 92 (70-99(Fasting)) mg/dl Calcium 9.3 (8.6-10.3) mg/dl Magnesium 2.1 (1.7-2.4) mg/dl Total Bilirubin 0.5 (0.2-1.0) mg/dl AST 12 L (13-39) U/L ALT 8 (7-52) U/L Alkaline Phosphatase 56 (34-104) U/L Troponin I High Sens < 2.3 (0-14) pg/ml Total Protein 6.7 (6.0-8.3) gm/dl Albumin 4.5 (3.4-5.0) gm/dl Globulin 2.2 L (2.5-4.0) gm/dl Albumin/Globulin Ratio 2.0 (0.9-2) Lipase 3 L (11-82) U/L Urine Color Dark Yellow Urine Appearance Turbid A (Clear) Urine pH 8.0 H (4.5-7.5) Ur Specific Theodore 1.020 (1.000-1.030) Urine Protein Negative (Negative) Urine Glucose (UA) Negative (Negative) Urine Ketones 1+ H (Negative) Urine Blood Negative (Negative) Urine Nitrite Negative (Negative) Urine Bilirubin Negative (Negative) Urine Urobilinogen Negative (Negative) Ur Leukocyte Esterase Negative (Negative) Urine WBC (Auto) 1-5 (0-5) /hpf Urine RBC (Auto) 0-4 (0-4) /hpf U Hyaline Cast (Auto) 5-10 H (0-5) /lpf U Epithel Cells (Auto) >30 H (0-5) /lpf Urine Bacteria (Auto) Negative (Negative) Imaging Data Attestation: I personally reviewed and interpreted this imaging study as follows: Radiologist's Impression: Abdomen/Pelvis CT 10/25/22 21:35 Exam(s): CT ABDOMEN + PELVIS With Contrast IV Amt: 92 ML OPTIRAY 320 EXAM: CT Abdomen and Pelvis With Intravenous Contrast CLINICAL HISTORY: Reason for exam: mid abd pain. TECHNIQUE: Axial computed tomography images of the abdomen and pelvis with intravenous contrast. CTDI is 14.16 mGy and DLP is 698.28 mGy-cm. Automated exposure control was utilized for the study. A dose lowering technique was utilized adhering to the principles of ALARA. CONTRAST: Patient received 92 ML OPTIRAY 320 of IV contrast COMPARISON: CT abdomen pelvis 01/12/2022. FINDINGS: Lung bases: Mild dependent atelectasis. ABDOMEN: Liver: Unremarkable. No mass. Gallbladder and bile ducts: Unremarkable. No calcified stones. No ductal dilation. Pancreas: Unremarkable. No mass. No ductal dilation. Spleen: Unremarkable. No splenomegaly. Adrenals: Unremarkable. No mass. Kidneys and ureters: Unremarkable. No solid mass. No hydronephrosis. Stomach and bowel: Fluid-filled small bowel and colon. No obstruction. No mucosal thickening. PELVIS: Appendix: No findings to suggest acute appendicitis. Bladder: Unremarkable. No mass. Reproductive: Hysterectomy. ABDOMEN and PELVIS: Intraperitoneal space: Unremarkable. No free air. No significant fluid collection. Bones/joints: Postsurgical changes seen related to prior laminectomy of L4. Postoperative changes also seen related to fusion of L4-L5 and L5- S1. Degenerative changes seen in the spine. No acute fracture. No dislocation. Soft tissues: Unremarkable. Vasculature: Atherosclerotic calcifications are seen in the abdominal aorta. No abdominal aortic aneurysm. Lymph nodes: Unremarkable. No enlarged lymph nodes. IMPRESSION: Fluid-filled small bowel and colon. Recommend correlation for enterocolitis. Electronically signed by: Garry Schroeder MD 10/25/22 23:54 PM [facility] Narrative Prior records/ancillary studies reviewed. Triage Nursing notes reviewed. Additional history obtained from nursing The patient's history was concerning for nausea, vomiting, diarrhea, and abdominal pain. Differential diagnosis: Etiologies such as gastroenteritis, food borne illness, infections, appendicitis, diverticulitis, inflammatory bowel disease, obstruction, GI bleed, biliary pathology, as well as others were entertained. Physical examination findings: As above. Abdominal examination revealed tenderness. Vital signs reviewed and revealed stable. ER treatment provided: IV hydration 1 L NSS. Reglan Benadryl Bentyl were ordered Potassium was ordered Ativan and Zofran were ordered as patient kept in vomiting On reassessment the patient felt better. Patient was tolerating p.o. intake. Diagnostics interpretation by me: EKG ordered for upper abdominal pain EKG: Normal sinus, normal intervals, no acute ST-T wave changes. Rate of 79. Impression normal sinus rhythm independently interpreted by myself I think arrhythmia is unlikely. EKG shows normal sinus rhythm with no interval abnormalities such as QT prolongation or WPW. There are no findings to suggest Brugada syndrome. Cardiac monitoring in the emergency department reveals no ta chycardic or bradycardic dysrhythmia. Hypertrophic cardiomyopathy was considered but there are no clear historical elements pointing toward this. EKG is not suggestive. The QRS voltage is not extremely large and there are no suggestive Q waves. The labs Independently Interpreted by myself revealed no worrisome leukocytosis Hypokalemia this was replaced orally Imaging studies: CAT scan was concerning for enterocolitis per my independent interpretation. Report was reviewed as above Consultation: A consultation was placed with the hospitalist. The case was discussed and diagnostics were reviewed. The patient was evaluated in the ER for further treatment. This appears to be consistent with intractable nausea and vomiting. Patient was given multiple rounds of medicines and she continued to vomit. Labs and diagnostics were independently interpreted by myself. Medicine was consulted and the case was discussed. She will be evaluated for possible admission for intractable nausea and vomiting. CT was negative for acute surgical problem. Patient was unable to give a stool specimen. By the evaluation outlined above emergent etiologies such as appendicitis, diverticulitis, obstruction, cardiac sources, mesenteric ischemia, aortic pathology, inflammatory bowel disease, re nal colic, PUD, biliary pathology, UTI, as well as others were deemed relatively unlikely. The pt informed about the findings as listed above. All questions were answered and pleased with the treatment. The chart was completed utilizing [employer] voice recognition software. Grammatical errors, random word insertions, pronoun errors, and incomplete sentences are an occassional consequence of this system due to software limitations, ambient noise, and hardware issues. Any formal questions or concerns about the content, text, or information contained within the body of this dictation should be directly addressed to the physician assistant store leader for clarification. Impression & Plan Intractable nausea and vomiting, Abdominal pain, acute, Enterocolitis Discharge Plan Visit Data Chief Complaint: Abdominal Pain Stated Complaint: GASTRO ISSUES,VOMIT,DIARREAH ED Provider: [facility] ED Midlevel Provider: Hali Fletcher Discharge Problem: Intractable nausea and vomiting, Abdominal pain, acute, Enterocolitis Patient Disposition: Being Evaluated by Hospitalist Condition: Good Forms Stand Alone Forms: [facility] Prescriptions Prescriptions: No Action celecoxib 200 mg capsule 200 mg PO BID pantoprazole 40 mg tablet,delayed release (DR/EC) 1 tab PO QDD duloxetine [Cymbalta] 60 mg capsule,delayed release(DR/EC) 60 mg PO QAM Rx Instructions: TOTAL DOSE 90 MG--TAKES WITH 30 MG CAP. cetirizine 10 mg Tablet 10 mg PO HS cyanocobalamin (vitamin B-12) 1,000 mcg Tablet 1,000 mcg PO QAM cholecalciferol (vitamin D3) [Vitamin D3] 5,000 unit Tablet 5,000 unit PO QAM levothyroxine 75 mcg Tablet 75 mcg PO QAM zolpidem 10 mg Tablet 10 mg PO HS PRN (Reason: Sleep) sumatriptan succinate 6 mg/0.5 mL Pen Injector 6 mg SUBCUT UD PRN (Reason: MIGRAINES) Linzess 72 mcg Capsule 72 mcg PO QAM hydroxyzine HCl 25 mg tablet 25 mg PO HS cyclobenzaprine 5 mg tablet 5 mg PO HS topiramate 100 mg Tablet 350 mg PO HS bupropion HCl 300 mg Tablet Extended Release 24 Hr 300 mg PO QAM duloxetine 30 mg Capsule, Delayed Rel Sprinkle 30 mg PO QAM Rx Instructions: TOTAL DOSE 90 MG--TAKES WITH 60 MG CAP. Referrals Referrals: Lynne Carvalho DO [Primary Care Provider] -
[2022-10-25] MEDS ORDERED: OPTIRAY 320 100ml IV ONE (22:52)
[2022-10-25] MEDS ORDERED: FAMOTIDINE 20MG IV PUSH 20 MG/5 ML SYR IV STA (23:00)
[2022-10-25] MEDS ORDERED: POTASSIUM CHLORIDE 10 MEQ TABCR PO STA (23:00)
--- NOTE | 2022-10-25 23:55 | CT Scan Report ---
Exam(s): CT ABDOMEN + PELVIS With Contrast IV Amt: 92 ML OPTIRAY 320 EXAM: CT Abdomen and Pelvis With Intravenous Contrast CLINICAL HISTORY: Reason for exam: mid abd pain. TECHNIQUE: Axial computed tomography images of the abdomen and pelvis with intravenous contrast. CTDI is 14.16 mGy and DLP is 698.28 mGy-cm. Automated exposure control was utilized for the study. A dose lowering technique was utilized adhering to the principles of ALARA. CONTRAST: Patient received 92 ML OPTIRAY 320 of IV contrast COMPARISON: CT abdomen pelvis 01/12/2022. FINDINGS: Lung bases: Mild dependent atelectasis. ABDOMEN: Liver: Unremarkable. No mass. Gallbladder and bile ducts: Unremarkable. No calcified stones. No ductal dilation. Pancreas: Unremarkable. No mass. No ductal dilation. Spleen: Unremarkable. No splenomegaly. Adrenals: Unremarkable. No mass. Kidneys and ureters: Unremarkable. No solid mass. No hydronephrosis. Stomach and bowel: Fluid-filled small bowel and colon. No obstruction. No mucosal thickening. PELVIS: Appendix: No findings to suggest acute appendicitis. Bladder: Unremarkable. No mass. Reproductive: Hysterectomy. ABDOMEN and PELVIS: Intraperitoneal space: Unremarkable. No free air. No significant fluid collection. Bones/joints: Postsurgical changes seen related to prior laminectomy of L4. Postoperative changes also seen related to fusion of L4-L5 and L5- S1. Degenerative changes seen in the spine. No acute fracture. No dislocation. Soft tissues: Unremarkable. Vasculature: Atherosclerotic calcifications are seen in the abdominal aorta. No abdominal aortic aneurysm. Lymph nodes: Unremarkable. No enlarged lymph nodes. IMPRESSION: Fluid-filled small bowel and colon. Recommend correlation for enterocolitis. Electronically signed by: Garry Schroeder MD 10/25/22 23:54 PM
[2022-10-26] MEDS ORDERED: LORazepam 2 MG/1 ML VIAL IV STA (00:04)
[2022-10-26] MEDS ORDERED: ONDANSETRON INJ 2 MG/ML 2 ML VIAL IV STA ×2 (00:04→10:57)
[2022-10-26] MEDS ORDERED: SODIUM CHLORIDE 0.9% 1000ML 1,000 ML IV ONE (00:04)
--- NOTE | 2022-10-26 00:48 | History & Physical Report ---
Date of Service October 26, 2022 Assessment & Plan (1) Nausea vomiting and diarrhea: Plan: 57yo female presenting with one day of nausea/vomiting and diarrhea. Patient has received multiple agents in the ER and continues to have symptoms. She is hemodynamically stable, non-toxic in appearance. Patient appears dry on physical exam. No overt dehydration on labs. Mild hypokalemia s/p repletion. CT findings as above with possible enterocolitis. Possibly viral etiology. Awaiting stool panel -Observation to medical -Continue IVF - LR + KCl 20mEq -Zofran PRN -Advance diet as tolerated (2) Irritable bowel disease: Plan: Chronic -Continue Linzess 72mcg po daily (3) GERD (gastroesophageal reflux disease): Plan: Chronic -Continue Protonix 40mg po daily (4) Hypothyroidism: Plan: Chronic. Last TSH on record from 2019 normal at 0.467 -Continue Synthroid -Check TSH (5) Fibromyalgia: Plan: Chronic -Continue Celebrex -Continue Flexeril -Continue Duloxetine -Continue Topamax (6) Depression: Plan: Chronic. Stable -Continue Wellbutrin XL 300mg po daily History of Present Illness Chief Complaint: nausea, vomiting, diarrhea Primary Care Provider: Lynne Carvalho DO Yanet Garcia is a pleasant 57yo female with history of IBS, Gastroparesis, Hypothyroidism, Fibromyalgia presenting with one day of nausea, vomiting, diarrhea. Patient reports multiple episodes of non-bloody/non-bilious vomiting that began yesterday. She has had over 12 episodes of emesis. Also with multiple episodes (>10) of watery, non-bloody/non-mucoid diarrhea. She has some abdominal discomfort and rib soreness. Otherwise, denies fever, chills, chest pain, palpitations, dysuria, rash. No recent travel or sick contacts. No dietary changes. She is on well water at home but has never had difficulty with it. In the ER she is afebrile, HD stable. Had multiple episodes of emesis - persistent despite medications administered. ER Course: NSS x 2L Zofran 4mg Ativan 1mg Pepcid 20mg KCl 40mEq PO Dicyclomine 20mg IM Benadryl 25mg IV Reglan 10mg IV Allergies Allergy/AdvReac Type Severity Reaction Status Date / Time Iodinated Contrast Media AdvReac Intermediate NAUSEA/VOMI Verified 10/25/22 22:52 TING Home Medications Medication Instructions Recorded Confirmed Type celecoxib 200 mg capsule 200 mg PO BID 07/12/18 10/25/22 History duloxetine 60 mg capsule,delayed 60 mg PO QAM 07/12/18 10/25/22 History release (Cymbalta) pantoprazole 40 mg tablet,delayed 1 tab PO QDD 07/12/18 10/25/22 History release cetirizine 10 mg tablet 10 mg PO HS 07/19/18 10/25/22 History cholecalciferol (vitamin D3) 125 5,000 unit PO QAM 07/19/18 10/25/22 History mcg (5,000 unit) tablet (Vitamin D3) cyanocobalamin (vitamin B-12) 1,000 mcg PO QAM 07/19/18 10/25/22 History 1,000 mcg tablet levothyroxine 75 mcg tablet 75 mcg PO QAM 07/09/20 10/25/22 History linaclotide 72 mcg capsule 72 mcg PO QAM 07/09/20 10/25/22 History (Linzess) sumatriptan succinate 6 mg/0.5 mL 6 mg subcut UD PRN MIGRAINES 07/09/20 10/25/22 History subcutaneous pen injector zolpidem 10 mg tablet 10 mg PO HS PRN Sleep 07/09/20 10/25/22 History cyclobenzaprine 5 mg tablet 5 mg PO HS 10/26/20 10/25/22 History hydroxyzine HCl 25 mg tablet 25 mg PO HS 10/26/20 10/25/22 History bupropion HCl 300 mg 24 hr tablet, 300 mg PO QAM 02/26/22 10/25/22 History extended release duloxetine 30 mg capsule,delayed 30 mg PO QAM 02/26/22 10/25/22 History release sprinkle topiramate 100 mg tablet 350 mg PO HS 02/26/22 10/25/22 History Past Med/Surg History Medical History (Updated 10/26/22 @ 00:58 by Sara Subramanian DO) Cervical spine fracture HX OF 2001 ([facility]) Degenerative disc disease Depression Fibromyalgia GERD (gastroesophageal reflux disease) History of Chiari malformation s/p surgical intervention. Follows with Dr. Ballard [facility]. History of gastric ulcer Hypothyroidism Irritable bowel disease Migraine Nausea and vomiting after administration of anesthetic agent Neurostimulator device in situ a device made by [employer] (patient has the card to bring DOS -- will bring magnet also) -- the stimulator is in patients head but the battery pack is in her lower back. patient aware the need to put the stimulator in surgery mode on her phone and will bring all the devices needed DOS. Follows with Dr. Farooq (Neurosurgeon [facility]) Osteoarthritis Ovarian cyst HX OF Sensorineural hearing loss (SNHL) of both ears Spinal stenosis Surgical History Fusion of spine CERVICAL 5-6-7 H/O craniotomy 2015/[facility] (TO CORRECT CHIARI MALFORMATION) and then repeat in 2019/[facility] H/O hand surgery x2 (LEFT) History of bilateral tubal ligation History of colonoscopy History of endoscopic sinus surgery History of esophagogastroduodenoscopy (EGD) History of hysterectomy History of tooth extraction S/P epidural steroid injection S/P foot surgery, left HX OF x3 S/P lumbar fusion x2 with Dr Matias at [facility] S/P placement of nerve stimulator placed in June 2021 at [facility] and then a revision done in August 2021 at [facility]. Family History Mother Family history of diabetes mellitus Hypertension Heart disease Asthma Father Hypertension Heart disease Grandmother Cancer Aunt Cancer Son Allergies Asthma Denies family history of Hearing loss No family history of adverse response to anesthesia No family history of bleeding disorder Stroke Social History Smoking Status: Current some day smoker Tobacco Type: Cigarettes Cigarettes Per Day: 5-10; Second Hand Exposure: No; Do You Dip or Chew Tobacco: No; Hx Alcohol Use: No Hx Substance Use: No Preferred Language: Sammarinese Communication Ability: Effective Visual Impairment: No Limitations Route Delivery Clerk Required: No Beliefs That Will Affect Care: None marital status: Current Living Situation: Spouse and Family Current Living Situation Comment: AND SON current occupational status: disabled How many Children do You have: 2 Feels Safe at Home: Yes Assistive Devices: None Review of Systems Review of Systems: All systems reviewed & are unremarkable except as noted in HPI & below Physical Exam Physical Exam: General: patient in moderate distress secondary to persistent nausea and vomiting, awake, alert and answering questions appropriately Skin: warm, dry, intact, no rashes or lesions HEENT: NC/AT, PERRL, EOMI, anicteric sclera, conjunctiva without injection, external ear normal to inspection and nontender, nares patent, dry mucus membranes, dentition intact, no oropharyngeal lesions, neck supple, trachea midline, no LAD, no thyromegaly, no JVD Heart: +S1/S2, regular, no m/r/g Lungs: equal air entry bilaterally, no rales/rhonchi/wheezes Abd: +BS, soft, NT/ND, no masses/organomegaly/ascites Ext: warm, 2+ pulses in UE/LE bilaterally, no clubbing/cyanosis or edema Neuro: nonfocal, patient AA&O x 4, speech intact, no facial droop, moving all extremities on command with equal strength 5/5 Results & Data Results & Data Vital Signs (Past 12 Hours) Vital Signs Temp Pulse Pulse Resp BP BP Pulse Ox 10/25/22 23:43 73 16 135/77 100 10/25/22 23:00 75 17 109/68 97 10/25/22 22:30 75 20 103/71 98 10/25/22 22:00 76 19 99/65 L 99 10/25/22 21:30 83 26 H 116/64 96 10/25/22 21:29 84 10/25/22 21:21 77 18 101/64 99 10/25/22 21:02 36.9 C 75 20 102/65 100 O2 Del Method 10/25/22 23:43 Room Air 10/25/22 23:00 Room Air 10/25/22 22:30 Room Air 10/25/22 22:00 Room Air 10/25/22 21:30 Room Air 10/25/22 21:29 10/25/22 21:21 Room Air 10/25/22 21:02 Laboratory Results Laboratory Results WBC 5.86 K/ul (4.8-10.8) 10/25/22 21:18 RBC 3.97 M/uL (4.20-5.40) L 10/25/22 21:18 Hgb 13.8 g/dl (12.0-16.0) 10/25/22 21:18 Hct 39.6 % (37.0-47.0) 10/25/22 21:18 MCV 99.7 fL (80.0-100.0) 10/25/22 21:18 MCH 34.8 pg (25.0-34.0) H 10/25/22 21:18 MCHC 34.8 g/dL (32.0-36.0) 10/25/22 21:18 RDW Std Deviation 50.0 fL (36.4-46.3) H 10/25/22 21:18 RDW Coeff of Devan 13.7 % (11.5-14.5) 10/25/22 21:18 Plt Count 149 K/uL (130-400) 10/25/22 21:18 MPV 11.3 fL (9.4-12.4) 10/25/22 21:18 Immature Gran % (Auto) 0.2 % 10/25/22 21:18 Neut % (Auto) 75.9 % 10/25/22 21:18 Lymph % (Auto) 16.9 % 10/25/22 21:18 [place] % (Auto) 5.6 % 10/25/22 21:18 Eos % (Auto) 1.2 % 10/25/22 21:18 Baso % (Auto) 0.2 % 10/25/22 21:18 Neut # (Auto) 4.45 K/uL (1.40-6.50) 10/25/22 21:18 Lymph # (Auto) 0.99 K/uL (1.2-3.4) L 10/25/22 21:18 [place] # (Auto) 0.33 K/uL (0.11-0.59) 10/25/22 21:18 Eos # (Auto) 0.07 K/uL (0-0.50) 10/25/22 21:18 Baso # (Auto) 0.01 K/uL (0-0.2) 10/25/22 21:18 Immature Gran # (Auto) 0.01 K/uL (0.01-0.20) 10/25/22 21:18 Sodium 141 mmol/L (136-145) 10/25/22 21:18 Potassium 3.2 mmol/L (3.5-5.1) L 10/25/22 21:18 Chloride 113 mmol/L (98-107) H 10/25/22 21:18 Carbon Dioxide 23 mmol/L (21-32) 10/25/22 21:18 Anion Gap 5 (3-11) 10/25/22 21:18 BUN 18 mg/dl (6-23) 10/25/22 21:18 Creatinine 0.85 mg/dl (0.6-1.2) 10/25/22 21:18 Est Cr Clr Drug Dosing 58.4 ml/min 10/25/22 21:18 Est GFR ( Amer) 88.8 ml/min 10/25/22 21:18 Est GFR (Non-Af Amer) 76.6 ml/min 10/25/22 21:18 BUN/Creatinine Ratio 21.2 (10-20) H 10/25/22 21:18 Glucose 92 mg/dl (70-99(Fasting)) 10/25/22 21:18 Calcium 9.3 mg/dl (8.6-10.3) 10/25/22 21:18 Magnesium 2.1 mg/dl (1.7-2.4) 10/25/22 21:18 Total Bilirubin 0.5 mg/dl (0.2-1.0) 10/25/22 21:18 AST 12 U/L (13-39) L 10/25/22 21:18 ALT 8 U/L (7-52) 10/25/22 21:18 Alkaline Phosphatase 56 U/L (34-104) 10/25/22 21:18 Troponin I High Sens < 2.3 pg/ml (0-14) 10/25/22 21:18 Total Protein 6.7 gm/dl (6.0-8.3) 10/25/22 21:18 Albumin 4.5 gm/dl (3.4-5.0) 10/25/22 21:18 Globulin 2.2 gm/dl (2.5-4.0) L 10/25/22 21:18 Albumin/Globulin Ratio 2.0 (0.9-2) 10/25/22 21:18 Lipase 3 U/L (11-82) L 10/25/22 21:18 Urine Color Dark Yellow 10/25/22 21:18 Urine Appearance Turbid (Clear) A 10/25/22 21:18 Urine pH 8.0 (4.5-7.5) H 10/25/22 21:18 Ur Specific [place] 1.020 (1.000-1.030) 10/25/22 21:18 Urine Protein Negative (Negative) 10/25/22 21:18 Urine Glucose (UA) Negative (Negative) 10/25/22 21:18 Urine Ketones 1+ (Negative) H 10/25/22 21:18 Urine Blood Negative (Negative) 10/25/22 21:18 Urine Nitrite Negative (Negative) 10/25/22 21:18 Urine Bilirubin Negative (Negative) 10/25/22 21:18 Urine Urobilinogen Negative (Negative) 10/25/22 21:18 Ur Leukocyte Esterase Negative (Negative) 10/25/22 21:18 Urine WBC (Auto) 1-5 /hpf (0-5) 10/25/22 21:18 Urine RBC (Auto) 0-4 /hpf (0-4) 10/25/22 21:18 U Hyaline Cast (Auto) 5-10 /lpf (0-5) H 10/25/22 21:18 U Epithel Cells (Auto) >30 /lpf (0-5) H 10/25/22 21:18 Urine Bacteria (Auto) Negative (Negative) 10/25/22 21:18 Impressions Abdomen/Pelvis CT 10/25/22 21:35 Exam(s): CT ABDOMEN + PELVIS With Contrast IV Amt: 92 ML OPTIRAY 320 EXAM: CT Abdomen and Pelvis With Intravenous Contrast CLINICAL HISTORY: Reason for exam: mid abd pain. TECHNIQUE: Axial computed tomography images of the abdomen and pelvis with intravenous contrast. CTDI is 14.16 mGy and DLP is 698.28 mGy-cm. Automated exposure control was utilized for the study. A dose lowering technique was utilized adhering to the principles of ALARA. CONTRAST: Patient received 92 ML OPTIRAY 320 of IV contrast COMPARISON: CT abdomen pelvis 01/12/2022. FINDINGS: Lung bases: Mild dependent atelectasis. ABDOMEN: Liver: Unremarkable. No mass. Gallbladder and bile ducts: Unremarkable. No calcified stones. No ductal dilation. Pancreas: Unremarkable. No mass. No ductal dilation. Spleen: Unremarkable. No splenomegaly. Adrenals: Unremarkable. No mass. Kidneys and ureters: Unremarkable. No solid mass. No hydronephrosis. Stomach and bowel: Fluid-filled small bowel and colon. No obstruction. No mucosal thickening. PELVIS: Appendix: No findings to suggest acute appendicitis. Bladder: Unremarkable. No mass. Reproductive: Hysterectomy. ABDOMEN and PELVIS: Intraperitoneal space: Unremarkable. No free air. No significant fluid collection. Bones/joints: Postsurgical changes seen related to prior laminectomy of L4. Postoperative changes also seen related to fusion of L4-L5 and L5- S1. Degenerative changes seen in the spine. No acute fracture. No dislocation. Soft tissues: Unremarkable. Vasculature: Atherosclerotic calcifications are seen in the abdominal aorta. No abdominal aortic aneurysm. Lymph nodes: Unremarkable. No enlarged lymph nodes. IMPRESSION: Fluid-filled small bowel and colon. Recommend correlation for enterocolitis. Electronically signed by: Garry Schroeder MD 10/25/22 23:54 PM ECG Additional Comments: EKG - per my interpretation - study shows NSR at 79bpm, normal axis, YN=977, QRS=74, ZGg=515, some ST-T wave changes in inferior leads, inferior q wave in III PG Care Time/CCT Total # of Minutes Spent Total Time Spent with Patient: Total time spent is greater than 50% in coordination of care (as documented) at patient's floor/unit and/or counseling patient: Coding Level of Care Code 36637 INT INP/OBS CARE 3/75MIN Diagnoses Nausea vomiting and diarrhea R11.2; R19.7 Irritable bowel disease K58.9 GERD (gastroesophageal reflux disease) K21.9 Hypothyroidism E03.9 Fibromyalgia M79.7 Depression F32.9
[2022-10-26 01:59] LABS: Adenovirus F 40/41 PCR Not Detected (NotDetected); Astrovirus PCR Not Detected (NotDetected); Campylobacter PCR Not Detected (NotDetected); Cryptosporidium PCR Not Detected (NotDetected); Cyclospora cayetanensis PCR Not Detected (NotDetected); Entamoeba histolytica PCR Not Detected (NotDetected); Enteroaggregative E.coli(EAEC) Not Detected (NotDetected); Enteropathogenic E.coli (EPEC) Not Detected (NotDetected); Enterotoxigenic E.coli (ETEC) Not Detected (NotDetected); Giardia lamblia PCR Not Detected (NotDetected); Norovirus GI/GII PCR Not Detected (NotDetected); Plesiomonas shigelloides PCR Not Detected (NotDetected); Rotavirus A PCR Not Detected (NotDetected); Salmonella PCR Not Detected (NotDetected); Sapovirus PCR Not Detected (NotDetected); Shiga-like Toxin E.coli (STEC) Not Detected (NotDetected); Shigella/Enteroinvasive E.coli Not Detected (NotDetected); Vibrio cholerae PCR Not Detected (NotDetected); Vibrio species PCR Not Detected (NotDetected); Yersinia enterocolitica PCR Not Detected (NotDetected)
[2022-10-26] MEDS ORDERED: ONDANSETRON INJ 2 MG/ML 2 ML VIAL IV PRN (02:13)
[2022-10-26] MEDS ORDERED: ACETAMINOPHEN 325 MG TAB PO PRN (02:13)
[2022-10-26] MEDS ORDERED: ZOLPIDEM TARTRATE 10 MG TAB PO PRN (02:13)
[2022-10-26] MEDS: POTASSIUM CHLORIDE 20 MEQ in LACTATED RINGER'S 1,000 ML IV SCH ×2 (02:44→10:43)
[2022-10-26 02:52] LABS: Thyroid Stimulating Hormone 0.173 uIu/ml (0.300-4.500)
[2022-10-26 03:57] LABS: T4 Free Thyroxine 0.94 ng/dl (0.61-1.60)
[2022-10-26] MEDS ORDERED: LEVOTHYROXINE SODIUM 75 MCG TABLET PO SCH (06:30)
[2022-10-26] MEDS ORDERED: buPROPion XL 300 MG TABCR PO SCH (09:00)
[2022-10-26] MEDS ORDERED: linaCLOtide 72 MCG CAPSULE PO SCH (09:00)
[2022-10-26] MEDS ORDERED: DULoxetine HCL 60 MG CAP PO SCH (09:00)
[2022-10-26] MEDS ORDERED: CeleBREX 200 MG CAP PO SCH (09:00)
[2022-10-26] MEDS ORDERED: DULoxetine HCL 30 MG CAP PO SCH (09:00)
--- NOTE | 2022-10-26 10:15 | Hospitalist Progress Note ---
Date of Service October 26, 2022 Assessment & Plan (1) Nausea vomiting and diarrhea: Plan: 57yo female presenting with one day of nausea/vomiting and diarrhea. She is h emodynamically stable, non-toxic in appearance. CT findings suggest possible enterocolitis. Mild hypokalemia s/p repletion. CT findings as above with possible enterocolitis. Possibly viral etiology. Awaiting stool panel -Observation to medical -Continue IVF - LR + KCl 20mEq -Zofran PRN -Advance diet as tolerated (2) Irritable bowel disease: Plan: Chronic -Continue Linzess (Linaclotide) 72mcg po daily (3) GERD (gastroesophageal reflux disease): Plan: Chronic, stable -Continue Protonix 40mg po daily (4) Hypothyroidism: Plan: Chronic, stable. Last TSH on record from 2019 normal at 0.467 -Continue Synthroid -Check TSH (5) Fibromyalgia: Plan: Chronic, stable. -Continue Celebrex -Continue Flexeril -Continue Duloxetine -Continue Topamax (6) Depression: Plan: Chronic. Stable -Continue Wellbutrin XL 300mg po daily Plan DVT: Low risk, normal movement. FEN: Advance as tolerated. LR IV fluids Full Code Dispo: Observation Admission and Anticipated Discharge Date Admission Date: October 26, 2022 Subjective No acute events overnight. Today, she is feeling less dehydrated. She did not have a bowel movement yet this morning. She did urinate normally. She had minimal appetite, consuming a popsicle and toast. Physical Exam Constitutional: Alert and oriented x3 in hopsital bed Eyes: Pupils were equal, normal shape. Neck: Respiratory: CTA, no increased work of breathing Cardiovascular: Normal rate and regular rhythmn. S1, S2, no RMG were ausculated. Radial pulses equal b/l. Capillary refill less than 2 sec. Gastrointestinal (Abdomen): Nondistended, nontender, normoactive bowel sounds. Skin: Warm dry, no apparent rashed. Psychiatric: Appropriate mood and affect. Lymphatic: No lymphadenopathy in the neck and cervical region. Results & Data Results & Data Vital Signs (Past 12 Hours) Vital Signs Temp Pulse Pulse Pulse Resp BP BP 10/26/22 07:33 10/26/22 07:01 36.9 C 77 16 106/88 10/26/22 02:13 10/26/22 02:13 10/26/22 02:13 36.6 C 58 L 18 10/26/22 02:13 36.6 C 58 L 18 10/26/22 01:39 64 21 140/67 10/26/22 01:01 72 23 131/57 L 10/26/22 00:50 72 22 10/26/22 00:40 75 20 10/26/22 00:30 72 22 10/26/22 00:30 136/71 10/26/22 00:27 68 21 10/25/22 23:50 80 18 10/26/22 00:44 10/25/22 23:43 73 16 135/77 10/25/22 23:00 75 17 109/68 10/25/22 22:30 75 20 103/71 BP Pulse Ox O2 Del Method 10/26/22 07:33 Room Air 10/26/22 07:01 95 Room Air 10/26/22 02:13 Room Air 10/26/22 02:13 Room Air 10/26/22 02:13 113/74 97 Room Air 10/26/22 02:13 113/74 97 Room Air 10/26/22 01:39 98 Room Air 10/26/22 01:01 10/26/22 00:50 94 10/26/22 00:40 97 10/26/22 00:30 95 10/26/22 00:30 10/26/22 00:27 95 10/25/22 23:50 96 10/26/22 00:44 95 10/25/22 23:43 100 Room Air 10/25/22 23:00 97 Room Air 10/25/22 22:30 98 Room Air Laboratory Results 10/25/22 21:18 10/25/22 21:18 Diagnostic Findings Abdomen/Pelvis CT 10/25/22 21:35 Exam(s): CT ABDOMEN + PELVIS With Contrast IV Amt: 92 ML OPTIRAY 320 EXAM: CT Abdomen and Pelvis With Intravenous Contrast CLINICAL HISTORY: Reason for exam: mid abd pain. TECHNIQUE: Axial computed tomography images of the abdomen and pelvis with intravenous contrast. CTDI is 14.16 mGy and DLP is 698.28 mGy-cm. Automated exposure control was utilized for the study. A dose lowering technique was utilized adhering to the principles of ALARA. CONTRAST: Patient received 92 ML OPTIRAY 320 of IV contrast COMPARISON: CT abdomen pelvis 01/12/2022. FINDINGS: Lung bases: Mild dependent atelectasis. ABDOMEN: Liver: Unremarkable. No mass. Gallbladder and bile ducts: Unremarkable. No calcified stones. No ductal dilation. Pancreas: Unremarkable. No mass. No ductal dilation. Spleen: Unremarkable. No splenomegaly. Adrenals: Unremarkable. No mass. Kidneys and ureters: Unremarkable. No solid mass. No hydronephrosis. Stomach and bowel: Fluid-filled small bowel and colon. No obstruction. No mucosal thickening. PELVIS: Appendix: No findings to suggest acute appendicitis. Bladder: Unremarkable. No mass. Reproductive: Hysterectomy. ABDOMEN and PELVIS: Intraperitoneal space: Unremarkable. No free air. No significant fluid collection. Bones/joints: Postsurgical changes seen related to prior laminectomy of L4. Postoperative changes also seen related to fusion of L4-L5 and L5- S1. Degenerative changes seen in the spine. No acute fracture. No dislocation. Soft tissues: Unremarkable. Vasculature: Atherosclerotic calcifications are seen in the abdominal aorta. No abdominal aortic aneurysm. Lymph nodes: Unremarkable. No enlarged lymph nodes. IMPRESSION: Fluid-filled small bowel and colon. Recommend correlation for enterocolitis. Electronically signed by: Garry Schroeder MD 10/25/22 23:54 PM
--- NOTE | 2022-10-26 10:59 | Electrocardiogram Report ---
Test Reason : Blood Pressure : / mmHG Vent. Rate : 079 BPM Atrial Rate : 079 BPM P-R Int : 146 ms QRS Dur : 074 ms QT Int : 386 ms P-R-T Axes : 049 028 027 degrees QTc Int : 442 ms Normal sinus rhythm Nonspecific ST abnormality Anterior leads Abnormal ECG When compared with ECG of 26-OCT-2020 19:36, Minor Nonspecific ST abnormality Anterior leads now present Confirmed by Mark Sawyer ([id number]) on 10/26/2022 10:59:23 AM Referred By: REFERRED SELF Confirmed By:Mark Sawyer
--- NOTE | 2022-10-26 15:39 | Discharge Summary ---
Date of Service October 26, 2022 Admission HPI Per Admitting Provider Yanet Garcia is a pleasant 57yo female with history of IBS, Gastroparesis, Hypothyroidism, Fibromyalgia presenting with one day of nausea, vomiting, diarrhea. Patient reports multiple episodes of non-bloody/non-bilious vomiting that began yesterday. She has had over 12 episodes of emesis. Also with multiple episodes (>10) of watery, non-bloody/non-mucoid diarrhea. She has some abdominal discomfort and rib soreness. Otherwise, denies fever, chills, chest pain, palpitations, dysuria, rash. No recent travel or sick contacts. No dietary changes. She is on well water at home but has never had difficulty with it. In the ER she is afebrile, HD stable. Had multiple episodes of emesis - persistent despite medications administered. ER Course: NSS x 2L Zofran 4mg Ativan 1mg Pepcid 20mg KCl 40mEq PO Dicyclomine 20mg IM Benadryl 25mg IV Reglan 10mg IV Admission Exam Per Admitting Provider General: patient in moderate distress secondary to persistent nausea and vomiting, awake, alert and answering questions appropriately Skin: warm, dry, intact, no rashes or lesions HEENT: NC/AT, PERRL, EOMI, anicteric sclera, conjunctiva without injection, external ear normal to inspection and nontender, nares patent, dry mucus membranes, dentition intact, no oropharyngeal lesions, neck supple, trachea midline, no LAD, no thyromegaly, no JVD Heart: +S1/S2, regular, no m/r/g Lungs: equal air entry bilaterally, no rales/rhonchi/wheezes Abd: +BS, soft, NT/ND, no masses/organomegaly/ascites Ext: warm, 2+ pulses in UE/LE bilaterally, no clubbing/cyanosis or edema Neuro: nonfocal, patient AA&O x 4, speech intact, no facial droop, moving all extremities on command with equal strength 5/5 Principal Diagnosis Enterocolitis Discharge Exam General: Not in acute distress Skin: warm, dry, intact, no rashes or lesions HEENT: Moist mucus membranes, dentition intact, no oropharyngeal lesions, neck supple, trachea midline, no LAD, no thyromegaly, no JVD Heart: +S1/S2, regular, no m/r/g Lungs: equal air entry bilaterally, no rales/rhonchi/wheezes Abd: +BS, soft, NT/ND, no masses/organomegaly/ascites Ext: warm, 2+ pulses in UE/LE bilaterally, no clubbing/cyanosis or edema Neuro: nonfocal, patient AA&O x 4, speech intact, no facial droop, moving all extremities on command with equal strength 5/5 Discharge Data Allergies Allergy/AdvReac Type Severity Reaction Status Date / Time Iodinated Contrast Media AdvReac Intermediate NAUSEA/VOMI Verified 10/25/22 22:52 TING Consultations 10/26/22 00:05 ED Decision to Admit Stat Ordered Studies 10/25/22 21:35 CT Abd and Pelvis [CT abd pelvis IV con only] Stat Hospital Course (1) Nausea vomiting and diarrhea: Yanet Garcia presented in the ER with one day of profuse diarrhea and vomiting. Her CT showed possible enterocolitis. Presentation likely viral etiology. Stool panel pending at the time of discharge. She was treated with repletion of IV fluids (NS and LR with KCl), potassium, and ativan and zofran. The next day she was able to tolerate food and the diarrhea had dramatically reduced. She was discharged with zofran. (2) Irritable bowel disease: Continued Linzess (Linaclotide) 72mcg po daily (3) GERD (gastroesophageal reflux disease): Continued Protonix 40mg po daily (4) Hypothyroidism: TSH found to be low at 0.17. Continued Synthroid at home regiman. Should follow with PCP. (5) Fibromyalgia: Chronic, stable. -Continued Celebrex -Continued Flexeril -Continued Duloxetine -Continued Topamax (6) Depression: Continued Wellbutrin XL 300mg po daily Total Time Total Time Spent Total Time Spent (In Minutes): 90 Discharge Plan Discharge Items Patient Disposition: Home - Self-Care Reason For Visit: NAUSEA/VOMITING/DIARRHEA Discharge Diagnosis: Nausea/Vomiting/Diarrhea Condition on Discharge: Good Activity: Per Instructions section Non-emergency contact: Primary Care Provider Call non-emergency contact if: you have any medication questions, your symptoms worsen and your temperature is above 101.5 Follow-up/Referrals: Lynne Carvalho DO [Primary Care Provider] - 10/29/22 10:25 am (At the [facility] office) Diet: Regular Addtl Attending Provider Instructions: You were admitted to the hospital for nausea/vomiting. You were treated with Zofran and IV fluids. Your symptoms are likely either from a GI virus or an exacerbation of your IBS and gastroparesis. You will be sent a prescription for Zofran which you can take for nausea symptoms. It is recommended that you follow up with your primary care provider and your GI doctor as needed for continued symptoms. Follow-up appointments Make a follow-up appointment with your PCP within the next week. It is very important that you follow up with them shortly after discharge from the hospital. Keep all your follow-up appointments as already scheduled. If you cannot make an appointment, notify your provider. Medications Your medication list has been reviewed and reconciled upon discharge to ensure accuracy and continuity of care. An updated list of all your medications is included with your hospital discharge paperwork. Please review this list closely, and make note of any changes. We sent a new medication called Zofran to your pharmacy. Take Zofran 4mg q6h as needed for nausea symptoms. CALL 911 OR GO TO THE EMERGENCY DEPARTMENT if you experience any of the following: Sudden, severe abdominal pain or nausea/vomiting Severe chest pain, or chest pain that radiates (moves) to your jaw or arm Sudden, severe shortness of breath or difficulty breathing Thank you for allowing us to participate in your care. Pending Studies at Discharge: Yes Stand-Alone Forms: My [facility] [employer], Smoking Cessation Medications and DC Order Prescriptions: New ondansetron 4 mg tablet,disintegrating 4 mg PO Q6H PRN (Reason: nausea and vomiting) Qty: 20 0RF Continued celecoxib 200 mg capsule 200 mg PO BID pantoprazole 40 mg tablet,delayed release (DR/EC) 1 tab PO QDD duloxetine [Cymbalta] 60 mg capsule,delayed release(DR/EC) 60 mg PO QAM Rx Instructions: TOTAL DOSE 90 MG--TAKES WITH 30 MG CAP. cetirizine 10 mg Tablet 10 mg PO HS cyanocobalamin (vitamin B-12) 1,000 mcg Tablet 1,000 mcg PO QAM cholecalciferol (vitamin D3) [Vitamin D3] 5,000 unit Tablet 5,000 unit PO QAM levothyroxine 75 mcg Tablet 75 mcg PO QAM zolpidem 10 mg Tablet 10 mg PO HS PRN (Reason: Sleep) sumatriptan succinate 6 mg/0.5 mL Pen Injector 6 mg SUBCUT UD PRN (Reason: MIGRAINES) Linzess 72 mcg Capsule 72 mcg PO QAM hydroxyzine HCl 25 mg tablet 25 mg PO HS cyclobenzaprine 5 mg tablet 5 mg PO HS topiramate 100 mg Tablet 350 mg PO HS bupropion HCl 300 mg Tablet Extended Release 24 Hr 300 mg PO QAM duloxetine 30 mg Capsule, Delayed Rel Sprinkle 30 mg PO QAM Rx Instructions: TOTAL DOSE 90 MG--TAKES WITH 60 MG CAP. Discharge Orders: Discharge Order (Routine); Ordered 10/26/22 Ordered By: Estefania Noel Admission Data Admit Date/Time: 10/26/22 02:09 Attending Provider: Brandy Zaragoza Admit Provider: Sara Subramanian Primary Care Provider: Lynne Carvalho Other Providers: Sara Subramanian Other Interventions: Discharge Summary Assessment (RN) Last Done: 10/26/22 15:41 Supervising Physician Co-Signing Physician Notes Medical Student Supervision Note: I was personally present during medical student patient encounter and independently interviewed and examined the patient and verified the cason history and physical, reviewed labs and image studies, discussed the case with Madeleine Voss and agree with the findings and care plan. Acute gastroenteritis - pending stool studies. likely viral etiology or exacerbation of IBS symptoms vs ? sec to hyperthyroid state from med dosing. Improved with IV hydration and tolerated PO well at the time of discharge. Hypothyroid - TSH 0.17. should have rechecked as outpatient. continue home dose levothyroxine
[2022-10-26] MEDS ORDERED: PANTOprazole 40 MG TAB PO SCH (16:30)
[2022-10-26] MEDS ORDERED: CETIRIZINE HCL 10 MG TABLET PO SCH (21:00)
[2022-10-26] MEDS ORDERED: TOPIRAMATE 100 MG TAB PO SCH (21:00)
[2022-10-26] MEDS ORDERED: CYCLOBENZAPRINE HCL 5 MG TAB PO SCH (21:00)
[2022-10-26] MEDS ORDERED: hydrOXYzine HCl 25 MG TAB PO SCH (21:00)
== END 2022-10-26 16:27 | disposition home or self-care (01) ==
LOC: 3W 20:50 → ED 20:50 → 3W 10-26 01:53 → SUATTDRO 10-26 02:09